=== PATIENT | female | born 1945 | race Caucasian/White ===

== ENCOUNTER 2021-01-02 14:13 | Emergency (ER) | payer MEDICARE, SELFPAY ==
--- NOTE | ~2021-01-02 | XR_ITS ---
XR abdomen/kub 1V 01/02/2021 14:48 Indication: Lower abdominal pain Procedure: KUB Comparison: No prior studies for comparison. Findings: There is moderate gas in the colon. No significant small bowel dilation. No abnormal calcif ications. No acute osseous abnormality. Impression: 1: Nonspecific bowel gas pattern. No definite obstruction. Reviewed, dictated and finalized at location A. [employer] Impression: 1: Nonspecific bowel gas pattern. No definite obstruction.
[2021-01-02 14:34] VITALS: BP 145/93; PULSE 76; RESP 20; TEMP 36.9; O2SAT 96
--- NOTE | 2021-01-02 14:47 | ED.GENADULT ---
HPI - General Adult General Chief complaint: Abdominal Pain Stated complaint: indigestion Time Seen by Provider: 01/02/21 14:35 Source: patient Mode of arrival: ambulatory Limitations: no limitations History of Present Illness HPI narrative: 75 year old female who presents to [facility] with complaints of lower abdominal discomfort with bloating and feelings of being full of gas. Patient states that she was on an antibiotic starting on the 09 of December for a sinus infection which upset her stomach and so she cut it back to one tab daily till she completed the prescription on Monday. Patient states that she has had a lower abdominal stomach ache since Monday and she took Miralax and some Milk of Magnesia and had a small diarrhea stool but has so much gas she is miserable. Patient has rounded abdomen with no rigidity noted, bowel sounds present in all quadrants. Patient denies any further diarrhea stools, no nausea or vomiting, states some belching. Patient denies any history of IBS, diverticulitis or colitis in the past. MD complaint: abdominal cramping Onset (ago): day(s) (3) Location: abdomen (lower and mid abdomen) Radiation: non-radiation Severity: moderate Severity scale (1-10): 7 Quality: other (cramping) Pain Consistency: intermittent Relieving factors: none Exacerbating factors: none Associated symptoms: loss of appetite Treatments prior to arrival: other (laxatives, yougurt wirh probiotics) Related Data Home Medications Medication Instructions Recorded Confirmed thyroid (pork) [[place] Thyroid] 120 mg DAILY 01/02/21 01/02/21 Allergies Allergy/AdvReac Type Severity Reaction Status Date / Time codeine Allergy Mild Verified 02/15/12 13:33 levothyroxine sodium Allergy Mild neck Verified 03/13/17 14:09 swelling Penicillins Allergy Mild Verified 02/15/12 13:34 Review of Systems Review of Systems: Narrative: CONSTITUTIONAL: Denies fever, chills, or sweats. EYES: Denies visual changes, redness, or discharge. ENT: Denies rhinorrhea, congestion, sore throat, or otalgia. CARDIOVASCULAR: Denies chest pain, palpitations, or edema. RESPIRATORY: Denies cough or dyspnea. GASTROINTESTINAL: Positive for lower and mid abdomen cramping, nausea, distention with feelings of gas, with one episode of diarrhea GENITOURINARY: Denies dysuria or hematuria. SKIN: Denies rash or itching. MUSCULOSKELETAL: Denies back pain, joint pain, or myalgia. NEUROLOGIC: Denies headache, numbness, or weakness. PSYCHIATRIC: Denies anxiety or depression. All systems reviewed & are unremarkable except as noted in HPI and below PMFSH Past Medical History Medical History (Updated 01/02/21 @ 15:53 by Stephany Chow NP) Bilateral swelling of feet and ankles Hypothyroidism Surgical History Surgical History (Updated 01/02/21 @ 14:54 by Stephany Chow NP) H/O thyroidectomy History of total left knee replacement History of total right knee replacement Family History Family History Father Family history of premature coronary heart disease Family history of heart disease in male family member before age 55 Mother Family history of osteoporosis Family history of malignant neoplasm Family history of congestive heart failure Other Cerebrovascular accident Social History Social History Smoking status: Never smoker Second hand tobacco smoke exposure: No Alcohol intake: never Gender identity (if verbalized by the patient): Female Comments At time of signature, agree with nursing past medical, surgical, social and family history. There is no relevant family history pertinent to the presenting complaint Exam Narrative: Exam Narrative: GENERAL: Well-appearing, well-nourished, and in no acute distress. HEAD: Normocephalic, atraumatic. EYES: PERRLA and EOMI. ENT: Nares clear, no rhinorrhea or epistaxis. Mucous
== END 2021-01-02 15:19 | disposition home or self-care (01) ==
PROVIDERS: Emergency Provider Registered Nurse
DX: R14.3 Flatulence (principal); R14.0 Abdominal distension (gaseous); R10.30 Lower abdominal pain, unspecified; E03.9 Hypothyroidism, unspecified; Z96.653 Presence of artificial knee joint, bilateral
CPT/HCPCS: 74018; 99213; G0463

== ENCOUNTER → 2021-05-06 15:13 | Outpatient (CLI) | payer MEDICARE, SELFPAY ==
--- NOTE | ~2021-05-06 | XR_ITS ---
EXAMINATION: XR knee RT min 4V DATE: 05/06/2021 15:43 INDICATION: Right knee pain. TECHNIQUE: 4 views of right knee were obtained. COMPARISON: None. FINDINGS: There is a total right knee arthroplasty with patellar resurfacing in near-anatomic alignme nt. No periprosthetic lucency to suggest loosening or infection. No fracture. No knee joint effusion. IMPRESSION: 1. Total right knee arthroplasty in near-anatomic alignment. Reviewed, dictated and finalized at location A.
--- NOTE | ~2021-05-06 | XR_ITS ---
EXAMINATION: XR hip RT min 2V DATE: 05/06/2021 15:43 INDICATION: Right hip pain. TECHNIQUE: 2 views of right hip were obtained. COMPARISON: None. FINDINGS: Bone alignment is normal. No fracture. There is mild right hip osteoarthritis. IMPRESSION: 1. Mild right hip osteoarthritis. Reviewed, dictated and finalized at location A.
--- NOTE | ~2021-05-06 | XR_ITS ---
EXAMINATION: XR knee LT min 4V DATE: 05/06/2021 15:43 INDICATION: Left knee pain. TECHNIQUE: 4 views of left knee were obtained. COMPARISON: None. FINDINGS: There is a total left knee arthroplasty with patellar resurfacing. Tibia demonstrates 5 deg tenisha valgus angulation with respect to tibial component. No periprosthetic lucency to suggest looseni ng or infection. No fracture. No knee joint effusion. IMPRESSION: 1. Total left knee arthroplasty in near-anatomic alignment. Reviewed, dictated and finalized at location A.
== END ==
PROVIDERS: PCP Family Medicine; Visit Provider Physician Assistant
DX: M16.11 Unilateral primary osteoarthritis, right hip (principal); Z96.651 Presence of right artificial knee joint; M25.562 Pain in left knee
CPT/HCPCS: 73502; 73564

== ENCOUNTER 2021-05-29 01:18 | Observation (INO) | payer MEDICARE, SELFPAY ==
[2021-05-29] VITALS (11 sets, daily range): BP systolic 145–199; BP diastolic 68–117; PULSE 74–91; RESP 15–20; TEMP 35.9–36.6; O2SAT 84–98; BMI 42.9
--- NOTE | ~2021-05-29 | CT_ITS ---
EXAMINATION: CT abdomen pelvis w con INDICATION: Abdominal pain TECHNIQUE: Computed tomographic images of the abdomen and pelvis were obtained after the administrati on of 100 cc of Omnipaque 350 intravenous contrast. The dose-length product (DLP) was 1368.95 mGy-cm. Automated exposure control and iterative reconstruction technique were employed. COMPARISON: 04/18/2019, ultrasound FINDINGS: Minimal dependent atelectasis is present in the lung bases. The heart size is normal. There is a 1.4 x 1.0 cm mass in the left breast. The liver is diffusely low in attenuation when compared w ith the spleen, consistent with hepatic steatosis. The spleen, pancreas, gallbladder, and adrenal gla nds are normal. Cysts of the kidneys measure up to 2.1 cm on the left. No pathologically enlarged abd ominal or pelvic lymph nodes are identified. There is a large midline ventral hernia of the lower abd ominal wall containing small bowel. The small bowel loops proximal to the hernia are fluid-filled. Th e small bowel distal to the hernia is decompressed. No free intraperitoneal gas is identified. The ap pendix is normal. There is severe lumbar spondylosis. IMPRESSION: 1. Large ventral hernia containing small bowel with decompression of small bowel distal to the hernia which could reflect early obstruction. 2. 1.4 cm left breast mass. Recommend follow-up with diagnostic mammogram and possible ultrasound as an outpatient. 3. Diffuse hepatic steatosis. Reviewed, dictated and finalized at location A. IMPRESSION: 1. Large ventral hernia containing small bowel with decompression of small fabiola l distal to the hernia which could reflect early obstruction. 2. 1.4 cm left breast mass. Recommend follow-up with diagnostic mammogram and p ossible ultrasound as an outpatient. 3. Diffuse hepatic steatosis.
--- NOTE | ~2021-05-29 | XR_ITS ---
EXAMINATION: XR abdomen obstructive series DATE: 05/31/2021 09:38 INDICATION: Large ventral hernia with partial small bowel obstruction TECHNIQUE: Upright and supine, and crosstable lateral views of the abdomen were obtained. COMPARISON: 05/30/2021 FINDINGS: Again seen is a large persistent ventral hernia of the lower abdominal wall. There are pers istently dilated loops of small bowel in the lower abdomen which is slightly decreased in number. Gas and stool are present in the colon. No free intraperitoneal gas is identified. IMPRESSION: 1. Persistent large ventral hernia of the lower abdominal wall with slightly decreased number of dila catie small bowel loops in the pelvis. Reviewed, dictated and finalized at location A. IMPRESSION: 1. Persistent large ventral hernia of the lower abdominal wall with slightly de creased number of dilated small bowel loops in the pelvis.
--- NOTE | ~2021-05-29 | XR_ITS ---
EXAMINATION: XR abdomen obstructive series EXAM DATE: 05/29/2021 12:18 INDICATION: Check bowel gas pattern after reduction of umbilical hernia. TECHNIQUE: Frontal upright projection of the upper abdomen, frontal projection of the lower abdomen f or interpretation. Correlation is made to CT abdomen earlier same date. FINDINGS: There are several loops of moderately distended air-filled small bowel overlying the pelvis , could be within the large hernia described on CT, although history states this has been clinically reduced. The small bowel proximal to this does not appear significantly distended or least does not h ave gas within it also not well visualized. No evidence of free intraperitoneal gas. There is no orga nomegaly. No suspicious soft tissue calcifications identified. IMPRESSION: Persistent moderately distended mid small bowel, central low location could still be within hernia de scribed on CT. Lateral abdomen cross table projection could determine anterior versus intra-abdominal location. Reviewed, dictated and finalized at location A. IMPRESSION: Persistent moderately distended mid small bowel, central low location could sti ll be within hernia described on CT. Lateral abdomen cross table projection cou ld determine anterior versus intra-abdominal location.
--- NOTE | ~2021-05-29 | XR_ITS ---
EXAMINATION: XR abdomen obstructive series DATE: 05/30/2021 10:50 INDICATION: Small bowel obstruction TECHNIQUE: Upright, supine, and crosstable lateral views of the abdomen were obtained. COMPARISON: CT from yesterday FINDINGS: Crosstable lateral view demonstrates a large, persistent ventral hernia of the lower abdomi nal wall. There are persistently distended loops of small bowel in the pelvis. No free intraperitonea l gas is identified. IMPRESSION: 1. Persistent large ventral hernia of the lower abdominal wall containing small bowel with dilated lo ops of small bowel in the pelvis. Reviewed, dictated and finalized at location A. IMPRESSION: 1. Persistent large ventral hernia of the lower abdominal wall containing small bowel with dilated loops of small bowel in the pelvis.
[2021-05-29 01:39] LABS: Basophils Percent Auto 0.4 % (0.2-1.2); Eosinophils Absolute Auto 0.2 K/mm3 (0-0.3); Eosinophils Percent Auto 1.6 % (0-4.4); Hematocrit 43.5 % (37.0-47.0); Hemoglobin 14.7 g/dL (12.0-15.0); Immature Granulocyte Absolute 0.03 K/mm3 (0.00-0.031); Immature Granulocyte Percent A 0.3 % (0-0.5); Lymphocytes Absolute Auto 1.03 K/mm3 (0.9-3.2); Lymphocytes Percent Auto 10.1 % (18.3-44.2); Mean Corpuscular HGB Conc 33.8 g/dl (32-36); Mean Corpuscular Hemoglobin 31.1 pg (26-34); Mean Platelet Volume 10.7 fl (7.4-10.4); Monocytes Absolute Auto 0.5 K/mm3 (0.1-0.6); Monocytes Percent Auto 5.3 % (2.6-8.5); Neutrophils Absolute Auto 8.4 K/mm3 (1.3-6.7); Neutrophils Percent Auto 82.3 % (45.5-73.1); Platelet Count Result 247 k/mm3 (150-375); Red Blood Count 4.73 M/mm3 (4.2-5.4); Red Cell Distribution Width 12.6 % (11.5-14.5); White Blood Count 10.2 K/mm3 (4.5-10.0)
[2021-05-29 01:53] LABS: Albumin Level 4.3 g/dL (3.5-5.1); Alkaline Phosphatase 60 U/L (38-126); Anion Gap 13 mmol/L (8-16); Aspartate Amino Transferase 39 U/L (14-36); Bilirubin,Total 0.6 mg/dL (0.2-1.3); Blood Urea Nitrogen 16 mg/dL (7-17); Calcium 10.1 mg/dL (8.4-10.2); Carbon Dioxide 20 mmol/L (22-30); Chloride 105 mmol/L (98-107); Estimated Glomerular Filt Rate 48; Glucose 157 mg/dL (65-105); Lipase 115 U/L (23-300); Potassium 4.5 mmol/L (3.4-5.0); Sodium 138 mmol/L (137-145)
[2021-05-29] MEDS: ONDANSETRON INJ 4 MG/2 ML VIAL IV PUSH ×2 (02:05→04:30)
[2021-05-29 02:08] LABS: Alanine Aminotransferase 41 U/L (4-35)
[2021-05-29 02:45] LABS: Add Urine Microscopic? NO; Appearance Urine Clear (Clear); Bilirubin Urine Negative (Negative); Blood Urine Negative (Negative); Color Urine Yellow (Yellow); Glucose Urine UA Negative (Negative); Ketones Urine Negative (Negative); Leukocyte Esterase Ur Negative LEU/UL (Negative); Nitrate Urine Negative (Negative); Protein Urine Negative (Negative); Specific Grav Ur 1.024 (1.001-1.035); Urobilinogen Urine Negative mg/dL (<2.0)
[2021-05-29 02:52] LABS: Bacteria Urine Trace /hpf; Mucus Urine Rare /lpf; Squamous Epithelial Cell Urine Rare /hpf (Few); WBC Urine 0-3 /hpf
--- NOTE | 2021-05-29 02:53 | ED.ABDPAIN ---
HPI - Abdominal Pain General Chief Complaint: Abdominal Pain Stated Complaint: stomach ache Time Seen by Provider: 05/29/21 01:29 History of Present Illness HPI narrative: Patient is a 75-year-old female who presents ER with abdominal pain. Sudden onset this evening. Feels like she is bloated. Pain is across her upper abdomen and she is belching. Has had a bowel movement this evening. No fevers or chills or sweats. Patient has a lower abdominal hernia that is tender but she reports this is unchanged in size and tenderness and is a chronic issue. She does not feel represents an incarcerated hernia. Denies urinary frequency or urgency. Patient reports burning similar to acid reflux and has tried Mylanta without relief. Related Data Home Medications Medication Instructions Recorded Confirmed thyroid (pork) [[place] Thyroid] 120 mg PO DAILY 05/29/21 05/29/21 Allergies Allergy/AdvReac Type Severity Reaction Status Date / Time codeine Allergy Mild Unknown Verified 05/29/21 05:55 levothyroxine sodium Allergy Mild neck Verified 05/29/21 05:55 swelling Penicillins Allergy Mild Unknown Verified 05/29/21 05:55 Review of Systems Review of Systems: All systems reviewed & are unremarkable except as noted in HPI and below Constitutional: Constitutional: Denies chills, Denies fever(s) and Denies weakness ENT: Denies nasal congestion and Denies sore throat Cardiovascular: Cardiovascular: Denies chest pain, Denies rapid heart rate and Denies radiating jaw, neck or arm pain Gastrointestinal: Gastrointestinal: Reports abdominal pain, Reports bloating, Denies constipation, Reports heartburn, Denies diarrhea, Reports nausea and Denies vomiting Genitourinary: Genitourinary: Denies dysuria and Denies flank pain [facility] Past Medical History Medical History Bilateral swelling of feet and ankles Hypothyroidism Surgical History Surgical History H/O thyroidectomy History of total left knee replacement History of total right knee replacement Family History Family History Father Family history of premature coronary heart disease Family history of heart disease in male family member before age 55 Mother Family history of osteoporosis Family history of malignant neoplasm Family history of congestive heart failure History of hysterectomy Grandparent Liver cancer Sibling ALS (amyotrophic lateral sclerosis) Other Cerebrovascular accident Social History Social History Smoking status: Never smoker Second hand tobacco smoke exposure: No Alcohol intake: never Substance use: never Substance use type: does not use Gender identity (if verbalized by the patient): Female Spiritual care concerns: No Exam Narrative: Exam Narrative: GENERAL: Chronically ill-appearing, morbidly obese, and in no acute distress. HEAD: Normocephalic, atraumatic. ENT: Mucous membranes moist. CHEST: Clear to auscultation. No respiratory distress. HEART: Regular rate and rhythm. Normal peripheral pulses. ABDOMEN: Soft, mild diffuse tenderness with ventral hernia deformity in the lower abdomen that is very tender to palpation. EXTREMITIES: Normal range of motion. 2+ edema. SKIN: Warm, dry, no rash. NEURO: Alert and oriented x3. PSYCH: Normal mood and affect. Course Course Emergency Course: Unable to reduce hernia. Surgery will accept patient for admission and would like medical consult. Unsuccessful NG placement down here and the floor will try. Vital Signs Vital signs: Vital Signs Temperature 97.3 F L 05/29/21 01:21 Pulse Rate 89 05/29/21 01:21 Respiratory Rate 20 05/29/21 01:21 Blood Pressure 199/117 H 05/29/21 01:21 Pulse Oximetry 96 05/29/21 01:21 Temperature 97.3 F L
[2021-05-29 03:03] LABS: Troponin I < 0.012 ng/mL (0.000-0.034)
[2021-05-29] MEDS: HYDROmorphone HCL INJ (*CRX) 1 MG/ML SYR IV PUSH (03:44)
--- NOTE | 2021-05-29 04:36 | PC.NURSE ---
NG attempted in both nares using 16 [place] sump and met resistance in both nares. notified.
--- NOTE | 2021-05-29 05:53 | ADMGEN ---
This patient, Yara Aguirre, was admitted to 2 Medical Room [facility]. Patient/family oriented to hospital policies and general routines including ID bracelet, bed and alarms, visiting hours, pain management, procedures, bathroom and other care routines, personal items, smoking policy, room service/diet, and visiting hours. Information on how to activate the Rapid Response Team has been discussed. Patient/Family are encouraged to report perceived risks to care and to ask questions if they do not understand what they are told or what they should do.
[2021-05-29] MEDS: SODIUM CHLORIDE 0.9% IV 1,000 ML 125 ML IV CONT ×2 (06:11→14:34)
--- NOTE | 2021-05-29 09:09 | P.CONIM_ITS ---
Assessment and Plan Assessment and plan (1) Incarcerated hernia: Onset Date: ~05/28/21 Code(s): K46.0 - Unspecified abdominal hernia with obstruction, without gangrene Status: Acute Assessment and Plan: * CT scan of the abdomen pelvis reveals a umbilical hernia with incarcerated small bowel which obstruction with dilated fluid and gas containing loops of small bowel proximal to the hernia. * General surgery on case and to manage * Abdominal binder * NPO diet * Trend labs * Labs in the am * Morphine 4mg IV Q2hr PRN for pain * Reglan 5mg IV Q6hr PRN for antiemetic (2) Borderline type 2 diabetes mellitus: Onset Date: Unknown Code(s): R73.03 - Prediabetes Status: Acute Assessment and Plan: * patient stated that she was checked for diabetes at that her primary care office which they told her she was told she is prediabetic * Accu-Cheks ACHS * A1c in the morning * Labs in morning * trend glucose * current glucose 110 * add medications if needed. (3) Morbid obesity with BMI of 40.0-44.9, adult: Onset Date: Unknown Code(s): E66.01 - Morbid (severe) obesity due to excess calories; Z68.41 - Body mass index [BMI]40.0-44.9, adult Status: Acute Assessment and Plan: * Apparently patient has been overweight her entire life. * Will encourage her to follow low-fat diet upon discharge. (4) Post-surgical hypothyroidism: Onset Date: Unknown Code(s): E89.0 - Postprocedural hypothyroidism Status: Acute Assessment and Plan: * Patient on [place] thyroid 120 mg p.o. daily * Apparently had total thyroidectomy in 2007 * TSH is 11.87, T3 is 105 free T4 is 1 As of 05/11/2021 * will hold home medications while patient is NPO. (5) Primary hypertension: Code(s): I10 - Essential (primary) hypertension Status: Acute Assessment and Plan: * Patient's blood pressure is 140-190/80-117 * will add p.r.n. hydralazine 10 IV q.8 p.r.n. for a systolic blood pressure greater than 160 * trend blood pressures * adjust medications as needed (6) PVD (peripheral vascular disease): Code(s): I73.9 - Peripheral vascular disease, unspecified Status: Acute Assessment and Plan: * patient has a history of PVD * 3 to 4+ pitting edema bilateral lower extremities. * will order sequentials * patient stated that she uses sequentials at home * will monitor edema * Consider aspirin and statin upon discharge. (7) Hyperlipemia: Code(s): E78.5 - Hyperlipidemia, unspecified Status: Acute Assessment and Plan: * Cholesterol is 180, LDL is 108 HDL is 48 and triglycerides 127 per labs in 05/11/2021 * will educate patient about low-fat diet * will have patient follow-up with primary care about possible statin drug. HPI Data of Consult Consult date: 05/29/21 Requesting Physician: Fabiano Whalen MD Primary Care Provider: Amanda New MD Consult Narrative Narrative: Yara Aguirre is a 75 year old female With past medical history of PVD, umbilical rupture from , borderline diabetes, and anemia who presented to the ED with severe abdominal pain. Patient stated that she had colicky pain all night however she ate dinner which was lasagna and then later on that evening she was still hungry and went to [employer], and got a vanilla
--- NOTE | 2021-05-29 09:09 | PM.IMCN ---
Assessment and Plan Assessment and plan (1) Incarcerated hernia: Onset Date: ~05/28/21 Code(s): K46.0 - Unspecified abdominal hernia with obstruction, without gangrene Status: Acute Assessment and Plan: CT scan of the abdomen pelvis reveals a umbilical hernia with incarcerated small bowel which obstruction with dilated fluid and gas containing loops of small bowel proximal to the hernia. General surgery on case and to manage Abdominal binder NPO diet Trend labs Labs in the am Morphine 4mg IV Q2hr PRN for pain Reglan 5mg IV Q6hr PRN for antiemetic (2) Borderline type 2 diabetes mellitus: Onset Date: Unknown Code(s): R73.03 - Prediabetes Status: Acute Assessment and Plan: patient stated that she was checked for diabetes at that her primary care office which they told her she was told she is prediabetic Accu-Cheks ACHS A1c in the morning Labs in morning trend glucose current glucose 110 add medications if needed. (3) Morbid obesity with BMI of 40.0-44.9, adult: Onset Date: Unknown Code(s): E66.01 - Morbid (severe) obesity due to excess calories; Z68.41 - Body mass index [BMI]40.0-44.9, adult Status: Acute Assessment and Plan: Apparently patient has been overweight her entire life. Will encourage her to follow low-fat diet upon discharge. (4) Post-surgical hypothyroidism: Onset Date: Unknown Code(s): E89.0 - Postprocedural hypothyroidism Status: Acute Assessment and Plan: Patient on [place] thyroid 120 mg p.o. daily Apparently had total thyroidectomy in 2007 TSH is 11.87, T3 is 105 free T4 is 1 As of 05/11/2021 will hold home medications while patient is NPO. (5) Primary hypertension: Code(s): I10 - Essential (primary) hypertension Status: Acute Assessment and Plan: Patient's blood pressure is 140-190/80-117 will add p.r.n. hydralazine 10 IV q.8 p.r.n. for a systolic blood pressure greater than 160 trend blood pressures adjust medications as needed (6) PVD (peripheral vascular disease): Code(s): I73.9 - Peripheral vascular disease, unspecified Status: Acute Assessment and Plan: patient has a history of PVD 3 to 4+ pitting edema bilateral lower extremities. will order sequentials patient stated that she uses sequentials at home will monitor edema Consider aspirin and statin upon discharge. (7) Hyperlipemia: Code(s): E78.5 - Hyperlipidemia, unspecified Status: Acute Assessment and Plan: Cholesterol is 180, LDL is 108 HDL is 48 and triglycerides 127 per labs in 05/11/2021 will educate patient about low-fat diet will have patient follow-up with primary care about possible statin drug. HPI Data of Consult Consult date: 05/29/21 Requesting Physician: Fabiano Whalen MD Primary Care Provider: Amanda New MD Consult Narrative Narrative: Yara Aguirre is a 75 year old female With past medical history of PVD, umbilical rupture from , borderline diabetes, and anemia who presented to the ED with severe abdominal pain. Patient stated that she had colicky pain all night however she ate dinner which was lasagna and then later on that evening she was still hungry and went to [employer], and got a vanilla milk shake. She then proceeded to go to bed and was unable to rest comfortably so she got up and found her some Mylanta which did not give her any relief. She stated that she started experiencing burning indigestion bloated feeling generalized over her abdomen she also did take some Gas-X and did not get any relief from that as well. She decided come to the ED after the pain started to gradually get worse she also stated that she was having indigestion and was having episodes of belching along with nausea and dry heaves. Currently
--- NOTE | 2021-05-29 09:39 | PM.IMHP ---
H&P: HPI History of Present Illness Date/Time: 05/29/21 09:39 Patient is a 75-year-old White female who presented the the [place] ED with abdominal pain. She says it was a fairly sudden onset on the evening prior to presentation. She statews that it feels like she is bloated. The pain is across her upper abdomen and she is belching a lot and not passing flatus per rectum. She did have a bowel movement last evening prior to eat the Lasagna for supper. She denies fevers or chills or sweats. Patient has a lower abdominal brianne-umbilical hernia that is tender but she reports this is unchanged in size and tenderness and is a chronic issue. She states that ever since she was 5 years old until about 5 years ago she wore a abdominal binder belt. She does not feel this pain represents an incarcerated hernia. Denies urinary frequency or urgency. Patient reports burning similar to acid reflux and has tried Mylanta without relief. Patient is on very few medications at home but in trying to help the pain last night she did take some Mylanta and Gas-X without relief. She recently remembers a similar episode about a month ago which led to less burping and resolve spontaneously. She has never had previous abdominal surgery. Chief Complaint: Abdominal pain Review of Systems Constitutional: Constitutional: Reports as per HPI and Denies headache(s) Eyes: Eyes: Denies loss of vision and Denies eye pain ENT: Reports Normal hearing present, Denies change in voice, Denies dizziness and Denies headache(s) Cardiovascular: Cardiovascular: Denies chest pain and Denies dyspnea Respiratory: Respiratory: Denies dyspnea and Denies wheezing Gastrointestinal: Gastrointestinal: Reports abdominal pain ( mainly above the level the umbilicus across the mid abdomen) and Denies constipation ( typically has 1 bowel movement today and had 1 last evening) Comments: no previous history of colonoscopy. Musculoskeletal: Musculoskeletal: Denies back pain and Denies arthralgias Neurologic: Reports Normal hearing present, Denies dizziness, Denies headache(s), Denies loss of vision and Denies memory loss Comments: History of shingles 2013 on her right posterior neck. Psychiatric: Psychiatric: Denies memory loss and Denies panic attacks Endocrine: Endocrine: Reports no additional endocrine complaints Comments: Recently discovered full ache acid deficiency History of long-term hypothyroidism on medication ( stable). Hematologic/Lymphatic: Hematologic/Lymphatic: Reports no additional hematologic/lymphatic complaints Allergic/Immunologic: Allergic/Immunologic: Denies wheezing [facility] Past Medical History Medical History Anemia 2019 Bilateral swelling of feet and ankles Borderline type 2 diabetes mellitus Hiatal hernia Diagnosed in 2019 Hypothyroidism PVD (peripheral vascular disease) Spontaneous rupture of umbilical cord Surgical History Surgical History H/O thyroidectomy 2007 History of total left knee replacement 2010 History of total right knee replacement 2009 Family History Family History Father Family history of premature coronary heart disease Family history of heart disease in male family member before age 55 Mother Family history of osteoporosis Family history of malignant neoplasm Family history of congestive heart failure History of hysterectomy Grandparent Liver cancer Sibling ALS (amyotrophic lateral sclerosis) Other Cerebrovascular accident Social History Social History Smoking status: Never smoker Second hand tobacco smoke exposure: No Alcohol intake: never Substance use: never Substance use type: does not use Living arrangements: alone Additional living arrangements comments:
[2021-05-29 17:07] LABS: Glucose Point of Care 94 mg/dl (65-105)
[2021-05-29 21:15] LABS: Glucose Point of Care 104 mg/dl (65-105)
[2021-05-30] VITALS (7 sets, daily range): BP systolic 134–155; BP diastolic 55–73; PULSE 69–91; RESP 16–20; TEMP 36–36.6; O2SAT 94–97
[2021-05-30 01:17] LABS: Glucose Point of Care 116 mg/dl (65-105)
[2021-05-30 05:05] LABS: Basophils Percent Auto 0.4 % (0.2-1.2); Eosinophils Absolute Auto 0.3 K/mm3 (0-0.3); Eosinophils Percent Auto 4.4 % (0-4.4); Hematocrit 37.7 % (37.0-47.0); Hemoglobin 12.4 g/dL (12.0-15.0); Immature Granulocyte Absolute 0.01 K/mm3 (0.00-0.031); Immature Granulocyte Percent A 0.1 % (0-0.5); Lymphocytes Absolute Auto 1.77 K/mm3 (0.9-3.2); Lymphocytes Percent Auto 25.1 % (18.3-44.2); Mean Corpuscular HGB Conc 32.9 g/dl (32-36); Mean Corpuscular Hemoglobin 30.8 pg (26-34); Mean Corpuscular Volume 93.5 fl (80-100); Mean Platelet Volume 10.9 fl (7.4-10.4); Monocytes Absolute Auto 0.6 K/mm3 (0.1-0.6); Monocytes Percent Auto 7.9 % (2.6-8.5); Neutrophils Absolute Auto 4.4 K/mm3 (1.3-6.7); Neutrophils Percent Auto 62.1 % (45.5-73.1); Platelet Count Result 195 k/mm3 (150-375); Red Blood Count 4.03 M/mm3 (4.2-5.4); Red Cell Distribution Width 12.6 % (11.5-14.5); White Blood Count 7.1 K/mm3 (4.5-10.0)
[2021-05-30 05:21] LABS: Anion Gap 6 mmol/L (8-16); Blood Urea Nitrogen 11 mg/dL (7-17); Calcium 8.6 mg/dL (8.4-10.2); Carbon Dioxide 26 mmol/L (22-30); Chloride 109 mmol/L (98-107); Estimated CRCL calculation 49 ml/min; Estimated Glomerular Filt Rate 44; Glucose 102 mg/dL (65-105); Magnesium 1.9 mg/dL (1.6-2.3); Potassium 4.2 mmol/L (3.4-5.0); Sodium 141 mmol/L (137-145)
[2021-05-30 05:27] LABS: Hemoglobin A1C 5.6 % (<5.7)
[2021-05-30 06:13] LABS: Glucose Point of Care 123 mg/dl (65-105)
--- NOTE | 2021-05-30 07:02 | P.PNIM_ITS ---
Progress Note: A&P Assessment and Plan (1) Incarcerated hernia: Onset Date: ~05/28/21 Code(s): K46.0 - Unspecified abdominal hernia with obstruction, without gangrene Status: Acute Assessment and Plan: * CT scan of the abdomen pelvis reveals a umbilical hernia with incarcerated small bowel which obstruction with dilated fluid and gas containing loops of small bowel proximal to the hernia. * General surgery on case and to manage * Abdominal binder * Repeat ABD xray: Persistent moderately distended mid small bowel, central low location could still be within hernia described on CT. Lateral abdomen cross table projection could determine anterior versus intra-abdominal location. * Clear liquids now/Advance to Consistent Carb diet * Trend labs * Labs in the am * Morphine 4mg IV Q2hr PRN for pain * Zofran 4mg IV PRN, Reglan 5mg IV Q6hr PRN for antiemetic (2) Borderline type 2 diabetes mellitus: Onset Date: Unknown Code(s): R73.03 - Prediabetes Status: Acute Assessment and Plan: * patient stated that she was checked for diabetes at that her primary care office which they told her she was told she is prediabetic * Accu-Cheks ACHS * A1c 5.6 * Labs in morning * trend glucose * current glucose 102 * add medications if needed. (3) Morbid obesity with BMI of 40.0-44.9, adult: Onset Date: Unknown Code(s): E66.01 - Morbid (severe) obesity due to excess calories; Z68.41 - Body mass index [BMI]40.0-44.9, adult Status: Acute Assessment and Plan: * Apparently patient has been overweight her entire life. * Will encourage her to follow low-fat diet upon discharge. (4) Post-surgical hypothyroidism: Onset Date: Unknown Code(s): E89.0 - Postprocedural hypothyroidism Status: Acute Assessment and Plan: * Patient on [place] thyroid 120 mg p.o. daily * Apparently had total thyroidectomy in 2007 * TSH is 11.87, T3 is 105 free T4 is 1 As of 05/11/2021 * Will hold home medications while patient is NPO. (5) Primary hypertension: Code(s): I10 - Essential (primary) hypertension Status: Acute Assessment and Plan: * Patient's blood pressure is 140-190/80-117 * Today BP 134/55 * will add p.r.n. hydralazine 10 IV q.8 p.r.n. for a systolic blood pressure greater than 160 * trend blood pressures * adjust medications as needed (6) PVD (peripheral vascular disease): Code(s): I73.9 - Peripheral vascular disease, unspecified Status: Acute Assessment and Plan: * patient has a history of PVD * 3 to 4+ pitting edema bilateral lower extremities. * will order sequentials * patient stated that she uses sequentials at home * will monitor edema * Follow up with PCP for initiation of aspirin and statin upon discharge. (7) Hyperlipemia: Code(s): E78.5 - Hyperlipidemia, unspecified Status: Acute Assessment and Plan: * Cholesterol is 180, LDL is 108 HDL is 48 and triglycerides 127 per labs in 05/11/2021 * will educate patient about low-fat diet * will have patient follow-up with primary care about possible statin drug. Subjective Date/time seen: 05/30/21 10:22 Interval history: Yara Aguirre is a 75 year old female With past medical history of PVD, umbilical rupture from , borderline diabetes, and anemia who presented to the ED with s
--- NOTE | 2021-05-30 07:02 | PM.IMPN ---
Progress Note: A&P Assessment and Plan (1) Incarcerated hernia: Onset Date: ~05/28/21 Code(s): K46.0 - Unspecified abdominal hernia with obstruction, without gangrene Status: Acute Assessment and Plan: CT scan of the abdomen pelvis reveals a umbilical hernia with incarcerated small bowel which obstruction with dilated fluid and gas containing loops of small bowel proximal to the hernia. General surgery on case and to manage Abdominal binder Repeat ABD xray: Persistent moderately distended mid small bowel, central low location could still be within hernia described on CT. Lateral abdomen cross table projection could determine anterior versus intra-abdominal location. Clear liquids now/Advance to Consistent Carb diet Trend labs Labs in the am Morphine 4mg IV Q2hr PRN for pain Zofran 4mg IV PRN, Reglan 5mg IV Q6hr PRN for antiemetic (2) Borderline type 2 diabetes mellitus: Onset Date: Unknown Code(s): R73.03 - Prediabetes Status: Acute Assessment and Plan: patient stated that she was checked for diabetes at that her primary care office which they told her she was told she is prediabetic Accu-Cheks ACHS A1c 5.6 Labs in morning trend glucose current glucose 102 add medications if needed. (3) Morbid obesity with BMI of 40.0-44.9, adult: Onset Date: Unknown Code(s): E66.01 - Morbid (severe) obesity due to excess calories; Z68.41 - Body mass index [BMI]40.0-44.9, adult Status: Acute Assessment and Plan: Apparently patient has been overweight her entire life. Will encourage her to follow low-fat diet upon discharge. (4) Post-surgical hypothyroidism: Onset Date: Unknown Code(s): E89.0 - Postprocedural hypothyroidism Status: Acute Assessment and Plan: Patient on [place] thyroid 120 mg p.o. daily Apparently had total thyroidectomy in 2007 TSH is 11.87, T3 is 105 free T4 is 1 As of 05/11/2021 Will hold home medications while patient is NPO. (5) Primary hypertension: Code(s): I10 - Essential (primary) hypertension Status: Acute Assessment and Plan: Patient's blood pressure is 140-190/80-117 Today BP 134/55 will add p.r.n. hydralazine 10 IV q.8 p.r.n. for a systolic blood pressure greater than 160 trend blood pressures adjust medications as needed (6) PVD (peripheral vascular disease): Code(s): I73.9 - Peripheral vascular disease, unspecified Status: Acute Assessment and Plan: patient has a history of PVD 3 to 4+ pitting edema bilateral lower extremities. will order sequentials patient stated that she uses sequentials at home will monitor edema Follow up with PCP for initiation of aspirin and statin upon discharge. (7) Hyperlipemia: Code(s): E78.5 - Hyperlipidemia, unspecified Status: Acute Assessment and Plan: Cholesterol is 180, LDL is 108 HDL is 48 and triglycerides 127 per labs in 05/11/2021 will educate patient about low-fat diet will have patient follow-up with primary care about possible statin drug. Subjective Date/time seen: 05/30/21 10:22 Interval history: Yara Aguirre is a 75 year old female With past medical history of PVD, umbilical rupture from , borderline diabetes, and anemia who presented to the ED with severe abdominal pain. Today she is laying bed and stated that she has a headache. She also stated that To pass gas without the night and that her legs were really swollen. She stated that she needed her moods so the nurse to put sequentials on her to see if that helps. Currently her pain is okay she does have a little soreness in the epigastric region she denies chest pain, shortness of breath, sweats, fatigue, weakness, urinary dysfunction, numbness and tingling in fingers and toes. patient also stated that she has been able to t
[2021-05-30] MEDS: SODIUM CHLORIDE 0.9% IV 1,000 ML 75 ML IV CONT (11:20)
--- NOTE | 2021-05-30 11:20 | PC.NURSE ---
IV fluids administered over night but no bag was scanned. Normal Saline infusion finished and I completed the order o the JAN. Original administration time unknown.
[2021-05-30] MEDS: ACETAMINOPHEN/ASPIRIN/CAFFEINE 250-250-65 MG TABLET 1 TABLET PO (11:44)
[2021-05-30 12:21] LABS: Glucose Point of Care 98 mg/dl (65-105)
[2021-05-30] MEDS: BISACODYL 10 MG SUPPOSITORY RECTAL (13:11)
[2021-05-30] MEDS: MAGNESIUM HYDROXIDE SUSP 30 ML UDC PO (18:43)
--- NOTE | 2021-05-30 19:11 | PM.PNGS ---
Progress Note: A&P Assessment and Plan (1) Incarcerated hernia: Onset Date: ~05/28/21 Code(s): K46.0 - Unspecified abdominal hernia with obstruction, without gangrene Status: Acute Assessment and Plan: CT scan of the abdomen pelvis reveals a umbilical hernia with incarcerated small bowel which appears to be causing some element of obstruction with dilated fluid and gas containing loops of small bowel proximal to the hernia. On initial exam with the patient in slight Trendelenburg position I was able to carefully massage and reduce this hernia nearly completely. I believe she will not need surgical intervention if we can keep this reduced. Repeat ABX shows still some air filled ioops of SB on both the 05/29 and 05/30 films, but pt is clinically improved. Will repeat abdominal film in AM on 05/31 and see if there are signs of improvement by Radiologic technique. karen and she did pass a little bit of gas in the interim period Plan for now then will be to check an x-ray in AM tomorrow after both a Fleets enema tonight and a dose of PO MOM. . We have encouraged the patient to get up and move her to try to help resolve the partial small-bowel obstruction. Will keep the abdominal binder in place over the hernia and recheck it tomorrow. Repeat labs in AM too. (2) Borderline type 2 diabetes mellitus: Onset Date: Unknown Code(s): R73.03 - Prediabetes Status: Acute Assessment and Plan: Patient on no home medication for this. Hospitalist consult to evaluate. (3) Morbid obesity with BMI of 40.0-44.9, adult: Onset Date: Unknown Code(s): E66.01 - Morbid (severe) obesity due to excess calories; Z68.41 - Body mass index [BMI]40.0-44.9, adult Status: Acute Assessment and Plan: Apparently patient has been overweight her entire life. Will encourage her to follow low-fat diet upon discharge. (4) Post-surgical hypothyroidism: Onset Date: Unknown Code(s): E89.0 - Postprocedural hypothyroidism Status: Acute Assessment and Plan: Patient on Thyroid supplement. Apparently had total thyroidectomy long ago. (5) History of total bilateral knee replacement (TKR): Onset Date: Unknown Code(s): Z96.653 - Presence of artificial knee joint, bilateral Status: Acute Assessment and Plan: No current problems with this. This may explain to some degree patient has some swelling in her lower extremities. Subjective Subjective Date/Time Seen: 05/30/21 09:11 Pt seen early this AM. The large umbilical hernia was again nearly copletely reduced. I also began teaching the pt how to massage this to reduce it on her own. She has not yet had a BM and this AM ABX still shows some dilated loops of SB. Pt denies abd. pain except at times as we reduced the hernia. She is tolerating an increasing diet. Review of Systems Constitutional: Constitutional: Reports as per HPI and Denies headache(s) Eyes: Eyes: Denies loss of vision and Denies eye pain ENT: Reports Normal hearing present, Denies change in voice, Denies dizziness and Denies headache(s) Cardiovascular: Cardiovascular: Denies chest pain and Denies dyspnea Respiratory: Respiratory: Denies dyspnea and Denies wheezing Gastrointestinal: Gastrointestinal: Reports abdominal pain ( mainly above the level the umbilicus across the mid abdomen) and Denies constipation ( typically has 1 bowel movement today and had one 2 evenings ago.) Comments: +flatus, but no BM since coming to the hospital. Musculoskeletal: Musculoskeletal: Denies back pain and Denies arthralgias Neurologic: Reports Normal hearing present, Denies dizziness, Denies headache(s), Denies loss of vision and Denies memory loss Psychiatric: Psychiatric: Denies memory loss and Denies panic attacks Endocrine: Endocrine: Reports no additional endocrine complaints Hematologic/Lymphatic: Hematologic/Lymphatic: Reports no additio
[2021-05-31] VITALS: BP 166/67; PULSE 93; RESP 20; TEMP 36.4; O2SAT 95
[2021-05-31 04:00] VITALS: BP 140/56; PULSE 88; RESP 20; TEMP 36.2; O2SAT 96
[2021-05-31 05:02] VITALS: BP 140/56; PULSE 88; RESP 20; TEMP 36.2; O2SAT 96
[2021-05-31 05:33] LABS: Basophils Percent Auto 0.4 % (0.2-1.2); Eosinophils Absolute Auto 0.3 K/mm3 (0-0.3); Eosinophils Percent Auto 4.2 % (0-4.4); Hematocrit 38.3 % (37.0-47.0); Hemoglobin 12.6 g/dL (12.0-15.0); Immature Granulocyte Absolute 0.01 K/mm3 (0.00-0.031); Immature Granulocyte Percent A 0.1 % (0-0.5); Lymphocytes Absolute Auto 1.18 K/mm3 (0.9-3.2); Lymphocytes Percent Auto 17.1 % (18.3-44.2); Mean Corpuscular HGB Conc 32.9 g/dl (32-36); Mean Corpuscular Hemoglobin 30.4 pg (26-34); Mean Corpuscular Volume 92.5 fl (80-100); Mean Platelet Volume 10.6 fl (7.4-10.4); Monocytes Absolute Auto 0.6 K/mm3 (0.1-0.6); Monocytes Percent Auto 9.1 % (2.6-8.5); Neutrophils Absolute Auto 4.8 K/mm3 (1.3-6.7); Neutrophils Percent Auto 69.1 % (45.5-73.1); Platelet Count Result 208 k/mm3 (150-375); Red Blood Count 4.14 M/mm3 (4.2-5.4); Red Cell Distribution Width 12.4 % (11.5-14.5); White Blood Count 6.9 K/mm3 (4.5-10.0)
[2021-05-31 05:43] LABS: Lactic Acid Reflex 0.9 mmol/L (0.7-2.1)
[2021-05-31 05:45] LABS: Alanine Aminotransferase 34 U/L (4-35); Albumin Level 3.4 g/dL (3.5-5.1); Alkaline Phosphatase 47 U/L (38-126); Anion Gap 7 mmol/L (8-16); Aspartate Amino Transferase 35 U/L (14-36); Bilirubin,Total 0.4 mg/dL (0.2-1.3); Blood Urea Nitrogen 15 mg/dL (7-17); Calcium 8.8 mg/dL (8.4-10.2); Carbon Dioxide 27 mmol/L (22-30); Chloride 105 mmol/L (98-107); Estimated CRCL calculation 49 ml/min; Estimated Glomerular Filt Rate 44; Glucose 108 mg/dL (65-105); Potassium 3.9 mmol/L (3.4-5.0); Sodium 139 mmol/L (137-145)
--- NOTE | 2021-05-31 06:55 | P.PNIM_ITS ---
Progress Note: A&P Assessment and Plan (1) Incarcerated hernia: Onset Date: ~05/28/21 Code(s): K46.0 - Unspecified abdominal hernia with obstruction, without gangrene Status: Acute Assessment and Plan: * CT scan of the abdomen pelvis reveals a umbilical hernia with incarcerated small bowel which obstruction with dilated fluid and gas containing loops of small bowel proximal to the hernia. * General surgery on case and to manage * Abdominal binder * Repeat ABD xray: 05/29/21 Persistent moderately distended mid small bowel, central low location could still be within hernia described on CT. Lateral abdomen cross table projection could determine anterior versus intra-abdominal location. 05/30/21:Persistent large ventral hernia of the lower abdominal wall containing small bowel with dilated loops of small bowel in the pelvis. * Clear liquids now/Advance to Consistent Carb, low fiber, soft diet * Trend labs * Labs in the am * Morphine 4mg IV Q2hr PRN for pain * Zofran 4mg IV PRN, Reglan 5mg IV Q6hr PRN for antiemetic (2) Borderline type 2 diabetes mellitus: Onset Date: Unknown Code(s): R73.03 - Prediabetes Status: Acute Assessment and Plan: * patient stated that she was checked for diabetes at that her primary care office which they told her she was told she is prediabetic * Accu-Cheks ACHS-D/C'd will trend from daily labs * A1c 5.6 * Labs in morning * trend glucose * current glucose 108 * add medications if needed. (3) Morbid obesity with BMI of 40.0-44.9, adult: Onset Date: Unknown Code(s): E66.01 - Morbid (severe) obesity due to excess calories; Z68.41 - Body mass index [BMI]40.0-44.9, adult Status: Acute Assessment and Plan: * Apparently patient has been overweight her entire life. * Will encourage her to follow low-fat diet upon discharge. (4) Post-surgical hypothyroidism: Onset Date: Unknown Code(s): E89.0 - Postprocedural hypothyroidism Status: Acute Assessment and Plan: * Patient on [place] thyroid 120 mg p.o. daily * Apparently had total thyroidectomy in 2007 * TSH is 11.87, T3 is 105 free T4 is 1 As of 05/11/2021 * Will hold home medications while patient is NPO. (5) Primary hypertension: Code(s): I10 - Essential (primary) hypertension Status: Acute Assessment and Plan: * Patient's blood pressure is 140-190/80-117 * Today BP 140/56 * will add p.r.n. hydralazine 10 IV q.8 p.r.n. for a systolic blood pressure greater than 160 * trend blood pressures * adjust medications as needed * Recommend patient follow up with PCP about better control (6) PVD (peripheral vascular disease): Code(s): I73.9 - Peripheral vascular disease, unspecified Status: Acute Assessment and Plan: * patient has a history of PVD * 3 to 4+ pitting edema bilateral lower extremities. * will order sequentials * patient stated that she uses sequentials at home * will monitor edema * Follow up with PCP for initiation of aspirin and statin upon discharge. (7) Hyperlipemia: Code(s): E78.5 - Hyperlipidemia, unspecified Status: Acute Assessment and Plan: * Cholesterol is 180, LDL is 108 HDL is 48 and triglycerides 127 per labs in 05/11/2021 * will educate patient about low-fat diet * will have patient follow-up with primary care about possible statin and aspirin
--- NOTE | 2021-05-31 06:55 | PM.IMPN ---
Progress Note: A&P Assessment and Plan (1) Incarcerated hernia: Onset Date: ~05/28/21 Code(s): K46.0 - Unspecified abdominal hernia with obstruction, without gangrene Status: Acute Assessment and Plan: CT scan of the abdomen pelvis reveals a umbilical hernia with incarcerated small bowel which obstruction with dilated fluid and gas containing loops of small bowel proximal to the hernia. General surgery on case and to manage Abdominal binder Repeat ABD xray: 05/29/21 Persistent moderately distended mid small bowel, central low location could still be within hernia described on CT. Lateral abdomen cross table projection could determine anterior versus intra-abdominal location. 05/30/21:Persistent large ventral hernia of the lower abdominal wall containing small bowel with dilated loops of small bowel in the pelvis. Clear liquids now/Advance to Consistent Carb, low fiber, soft diet Trend labs Labs in the am Morphine 4mg IV Q2hr PRN for pain Zofran 4mg IV PRN, Reglan 5mg IV Q6hr PRN for antiemetic (2) Borderline type 2 diabetes mellitus: Onset Date: Unknown Code(s): R73.03 - Prediabetes Status: Acute Assessment and Plan: patient stated that she was checked for diabetes at that her primary care office which they told her she was told she is prediabetic Accu-Cheks ACHS-D/C'd will trend from daily labs A1c 5.6 Labs in morning trend glucose current glucose 108 add medications if needed. (3) Morbid obesity with BMI of 40.0-44.9, adult: Onset Date: Unknown Code(s): E66.01 - Morbid (severe) obesity due to excess calories; Z68.41 - Body mass index [BMI]40.0-44.9, adult Status: Acute Assessment and Plan: Apparently patient has been overweight her entire life. Will encourage her to follow low-fat diet upon discharge. (4) Post-surgical hypothyroidism: Onset Date: Unknown Code(s): E89.0 - Postprocedural hypothyroidism Status: Acute Assessment and Plan: Patient on [place] thyroid 120 mg p.o. daily Apparently had total thyroidectomy in 2007 TSH is 11.87, T3 is 105 free T4 is 1 As of 05/11/2021 Will hold home medications while patient is NPO. (5) Primary hypertension: Code(s): I10 - Essential (primary) hypertension Status: Acute Assessment and Plan: Patient's blood pressure is 140-190/80-117 Today BP 140/56 will add p.r.n. hydralazine 10 IV q.8 p.r.n. for a systolic blood pressure greater than 160 trend blood pressures adjust medications as needed Recommend patient follow up with PCP about better control (6) PVD (peripheral vascular disease): Code(s): I73.9 - Peripheral vascular disease, unspecified Status: Acute Assessment and Plan: patient has a history of PVD 3 to 4+ pitting edema bilateral lower extremities. will order sequentials patient stated that she uses sequentials at home will monitor edema Follow up with PCP for initiation of aspirin and statin upon discharge. (7) Hyperlipemia: Code(s): E78.5 - Hyperlipidemia, unspecified Status: Acute Assessment and Plan: Cholesterol is 180, LDL is 108 HDL is 48 and triglycerides 127 per labs in 05/11/2021 will educate patient about low-fat diet will have patient follow-up with primary care about possible statin and aspirin Subjective Date/time seen: 05/31/21 06:55 Interval history: Yara Aguirre is a 75 year old female With past medical history of PVD, umbilical rupture from , borderline diabetes, and anemia who presented to the ED with severe abdominal pain. She is doing good today still no bowel movement patient stated that she got an enema plus Maalox yesterday which did not produce any BM however she has is having gas. I did talk to the patient about going to the primary care provider about her A1c and h
[2021-05-31 10:00] VITALS: BP 164/56; PULSE 78; RESP 16; TEMP 35.9; O2SAT 92
[2021-05-31] MEDS: MAGNESIUM HYDROXIDE SUSP 30 ML UDC PO (11:02)
[2021-05-31 14:00] VITALS: BP 175/88; PULSE 85; RESP 16; TEMP 35.9; O2SAT 96
--- NOTE | 2021-05-31 14:23 | PM.DS ---
DS: Admitting Diagnosis Admitting Diagnosis Admitting Diagnosis: Incarcerated umbilical hernia causing pSBO DS: Discharge Diagnosis Discharge Diagnosis (1) Incarcerated hernia: Onset Date: ~05/28/21 Code(s): K46.0 - Unspecified abdominal hernia with obstruction, without gangrene Status: Acute Assessment and Plan: Thisi was the main reason for pt admission. The hernia was found to be reducible and pts SBO resolved. (2) Primary hypertension: Onset Date: ~05/28/21 Code(s): I10 - Essential (primary) hypertension Status: Acute Assessment and Plan: Pt will f/U with her PCP about this and change to a heart healthy, low carb, low fat diet. (3) Morbid obesity with BMI of 40.0-44.9, adult: Onset Date: Unknown Code(s): E66.01 - Morbid (severe) obesity due to excess calories; Z68.41 - Body mass index [BMI]40.0-44.9, adult Status: Acute Assessment and Plan: Pt will f/U with her PCP about this and change to a heart healthy, low carb, low fat diet. (4) Hyperlipemia: Onset Date: Unknown Code(s): E78.5 - Hyperlipidemia, unspecified Status: Acute Assessment and Plan: Patient will discuss this with her PCP on her follow-up visit. May need a lipid reducing drug. DS: Summary Hospital Course Hospital Course: Patient presented initially with some upper abdominal pain and a large umbilical hernia which on CT scan seemed to be causing some element of complete or some partial small-bowel obstruction. Upon initially seen her after admission I was able to reduce this and the patient began feeling better. Each day I have reduced it and she has gradually increased her diet and is doing okay. I have taught her how to reduce this. Follow-up x-rays have shown mild dilation of a few loops of small bowel but also gas and stool in the colon so I do not believe is causing obstruction now. After thorough discussion the patient is interested in elective repair and therefore will see here back as an outpatient or set up surgery soon. We have discussed the risks benefits possible complications of a laparoscopic umbilical hernia repair possible open. If we did laparoscopically would use mesh to repair this I would be able to see to make sure we get all the small bowel reduced. She is interested in laparoscopic repair if possible. She will go home today and follow up toward the end of the week. She is concerned about multiple bills that she has to pay I will let her return to work after another day of rest if she is feeling well. She knows how to wear the abdominal binder during the day time leave it off at night and try to reduce her hernia both morning and evening prior to getting up and moving around. She will call the office if she has further problems. Status at Discharge Cognitive/behavioral status at discharge: She understands or problem wishes to proceed with planned noted above Functional status at discharge: independent ambulation Overall status at discharge: patient is back to baseline Time Spent with Patient Time attestation: Total time spent providing and/or coordinating discharge services: Time spent: Greater than 30 minutes Specific discharge activities: patient will reduce the umbilical hernia in the morning when she 1st wakes up in apply the abdominal binder. She will then remove the abdominal binder when she lays down to sleep at night try to reduce the hernia prior to going to sleep and repeat this each day. She knows that if she begins having significant abdominal pain she needs to lay down and reduce the hernia if possible. Exam Const: General: cooperative, no acute distress, alert and awake Orientation/consciousness: patient oriented x3 HENMT: Mouth: Yes moist mucous membranes Neck: Neck: normal visual inspection Chest: Chest palpation & inspection: normal inspection of the chest Resp: Effort & Inspection: normal respiratory effort Auscul
[2021-05-31] MEDS: ACETAMINOPHEN 500 MG TABLET 1000 MG PO (15:33)
[2021-05-31] MEDS: hydrALAZINE HCL 25 MG TABLET PO (15:59)
== END 2021-05-31 18:00 | disposition home or self-care (01) ==
LOC: ANHED 02:25 → ANH2MED 05:03
PROVIDERS: Nurse Practitioner; Admitting Provider Surgery; Emergency Provider Emergency Medicine; PCP Family Medicine; Visit Provider Surgery
DX: K42.0 Umbilical hernia with obstruction, without gangrene (principal); I10 Essential (primary) hypertension; I73.9 Peripheral vascular disease, unspecified; E89.0 Postprocedural hypothyroidism; E66.01 Morbid (severe) obesity due to excess calories; E78.5 Hyperlipidemia, unspecified; K44.9 Diaphragmatic hernia without obstruction or gangrene; R73.03 Prediabetes; Z96.653 Presence of artificial knee joint, bilateral; Z68.41 Body mass index [BMI] 40.0-44.9, adult
CPT/HCPCS: 36415; 74019; 74177; 80048; 80053; 81003; 82948; 83036; 83605; 83690; 83735; 84484; 85025; 96361; 96374; 96375; 96376; 99285; A9270; G0378; J0131; J1170; J2405; J7030; Q9967

== ENCOUNTER 2021-06-01 09:13 | Inpatient (IN) | payer MEDICARE, SELFPAY ==
[2021-06-01] VITALS (10 sets, daily range): BP systolic 152–188; BP diastolic 59–94; PULSE 75–90; RESP 16–20; TEMP 36.3–38; O2SAT 92–99; BMI 42.9; BMI 42.8
--- NOTE | ~2021-06-01 | XR_ITS ---
EXAMINATION: XR chest 2V DATE: 06/05/2021 13:26 INDICATION: Cough. Dyspnea. TECHNIQUE: Frontal and lateral views of the chest were obtained. COMPARISON: Chest 2 views 03/01/2011, CT abdomen and pelvis 06/01/2011 FINDINGS: There is chronic mild elevation of right hemidiaphragm. There is mild atelectasis versus sc arring at the lung bases. There is mild scarring at right lung apex. No pleural effusion or pneumotho rax. The heart size is normal. IMPRESSION: 1. Mild atelectasis versus scarring at the lung bases. Mild scarring at right lung apex. Reviewed, dictated and finalized at location A. IMPRESSION: 1. Mild atelectasis versus scarring at the lung bases. Mild scarring at right l kristine apex.
--- NOTE | ~2021-06-01 | US_ITS ---
US right upper quadrant DATE: 06/01/2021 12:50 INDICATION: Right upper quadrant abdominal pain. Distended gallbladder and mild pericholecystic fat s tranding on 06/01/2021 CT abdomen pelvis examination. TECHNIQUE: Real-time imaging and Doppler analysis COMPARISON: 06/01/2021 CT abdomen pelvis FINDINGS: The pancreas is not well demonstrated sonographically but appears unremarkable on the curre nt CT abdomen pelvis examination. There is hepatic steatosis. No hepatic space-occupying mass lesion is evident. Normal hepatopedal por jessi venous flow direction. There is sludge as well as some apparent stones with shadowing in the dependent aspect of the gallbla dder. Positive sonographic Yee's sign. The common bile duct measures 6.6 mm, borderline size in this 75-year-old patient. . IMPRESSION: Cholelithiasis, sludge in gallbladder Positive sonographic Yee's sign, suggesting acute cholecystitis Borderline, bile ducts size, measuring 6.6 mm Reviewed, dictated and finalized at [facility]. Reviewed, dictated and finalized at location A.
--- NOTE | ~2021-06-01 | CT_ITS ---
EXAMINATION: CT abdomen pelvis w con DATE: 06/01/2021 11:24 INDICATION: Abdominal pain, vomiting. Large ventral abdominal wall hernia containing small bowel TECHNIQUE: Computed tomography (CT) of the abdomen and pelvis was performed with 100 cc Omnipaque 350 intravenous contrast. Automated exposure control and iterative reconstruction technique were employe d. Exam dose: 1519.52 mGy-cm total exam DLP. COMPARISON: 06/15/2021 CT abdomen pelvis 06/01/2021 KUB/obstructive series FINDINGS: There is asymmetric 1.3 cm mass of the left breast. Bilateral diagnostic mammography is rec ommended, with ultrasound if required. There is mild atelectasis at the lung bases. Heart size is within normal range. No pericardial or pleural effusion. Diffuse hepatic steatosis. No hepatic space-occupying mass lesion is detected. The gallbladder is distended and there is mild pericholecystic fat stranding. Further evaluation with gallbladder ultrasound examination is recommended. No bile duct or pancreatic duct dilatation. No pancreatic mass lesion or calcification is detected. Normal splenic size. Normal morphology of the adrenal glands. Several right renal cysts, the largest measuring approximately 1.7 cm. Occasional left renal cysts, largest measuring up to 2.1 cm. No urinary tract calculus or hydroureteronephrosis. The urinary bladder, uterus and adnexal areas are unremarkable. Normal caliber of the abdominal aorta. No intraperitoneal or retroperitoneal or pelvic mass lesion or adenopathy or ascites. There is a large ventral midline abdominal wall hernia, measuring up to 3.9 cm with at the anterior a bdominal wall, measuring up to 6.2 cm AP, 13.8 cm transverse dimension. The hernia contains nonobstru cted nonstrangulated small bowel. Normal appendix. Mild colonic diverticulosis; no CT evidence of diverticulitis. No bowel obstruction, bowel wall thickening, pneumatosis or intraperitoneal free air is evident. No suspicious osteolytic or osteoblastic lesions are noted. IMPRESSION: Distended gallbladder, mild pericholecystic fat stranding. Acute cholecystitis is not ex cluded. Consider gallbladder ultrasound examination Large ventral abdominal wall hernia containing small bowel, without evidence of strangulation or obst ruction 1.3 cm left breast mass; bilateral diagnostic mammography is recommended, with ultrasound if required Hepatic steatosis Bilateral renal cysts Mild colonic diverticulosis; no CT evidence of diverticulitis Reviewed, dictated and finalized at [facility]. Reviewed, dictated and finalized at location A. IMPRESSION: Distended gallbladder, mild pericholecystic fat stranding. Acute c holecystitis is not excluded. Consider gallbladder ultrasound examination Large ventral abdominal wall hernia containing small bowel, without evidence of strangulation or obstruction 1.3 cm left breast mass; bilateral diagnostic mammography is recommended, with ultrasound if required Hepatic steatosis Bilateral renal cysts Mild colonic diverticulosis; no CT evidence of diverticulitis
--- NOTE | 2021-06-01 10:19 | PC.NURSE ---
Phlebotomy called due to patient being stuck multiple times without success at obtaining the blood.
--- NOTE | 2021-06-01 10:27 | ED.ABDPAIN ---
HPI - Abdominal Pain General Chief Complaint: Abdominal Pain <CARMINA Urias - Last Filed: 06/01/21 14:24> Stated Complaint: Abd Pain <CARMINA Urias - Last Filed: 06/01/21 14:24> Time Seen by Provider: 06/01/21 09:25 <CARMINA Urias - Last Filed: 06/01/21 14:24> Source: patient <CARMINA Urias - Last Filed: 06/01/21 14:24> Mode of arrival: ambulatory <CARMINA Urias - Last Filed: 06/01/21 14:24> Limitations: no limitations <CARMINA Urias - Last Filed: 06/01/21 14:24> History of Present Illness HPI narrative: Patient is a 75 year old female who presents with abdominal pain, nausea with dry heaving and reports of no bowel movement x 3-4 days. Patient was discharged last pm after admission with ventral hernia with possible partial obstruction with surgery scheduled for 06/03/21 per patient. Patient reports increased pain and pressure to abdomen starting this am. Patient reports nausea and dry heaving last pm. She denies chest pain or shortness of breath. <CARMINA Urias - Last Filed: 06/01/21 14:24> MD elicited complaint: abdominal pain <CARMINA Urias - Last Filed: 06/01/21 14:24> Related Data Home Medications: Home Medications Medication Instructions Recorded Confirmed thyroid (pork) [Gibson Thyroid] 120 mg PO DAILY 05/29/21 05/29/21 <CARMINA Urias - Last Filed: 06/01/21 14:24> Allergies/Adverse Reactions: Allergies Allergy/AdvReac Type Severity Reaction Status Date / Time codeine Allergy Mild Unknown Verified 05/29/21 05:55 levothyroxine sodium Allergy Mild neck Verified 05/29/21 05:55 swelling Penicillins Allergy Mild Unknown Verified 05/29/21 05:55 <CARMINA Urias - Last Filed: 06/01/21 14:24> Review of Systems Review of Systems: Narrative: CONSTITUTIONAL: Denies fever, chills, or sweats. EYES: Denies visual changes, redness, or discharge. ENT: Denies rhinorrhea, congestion, sore throat, or otalgia. CARDIOVASCULAR: Denies chest pain, palpitations, or edema. RESPIRATORY: Denies cough or dyspnea. GASTROINTESTINAL: Reports abdominal pain, nausea, vomiting and constipation. GENITOURINARY: Denies dysuria or hematuria. SKIN: Denies rash or itching. MUSCULOSKELETAL: Denies back pain, joint pain, or myalgia. NEUROLOGIC: Denies headache, numbness, dizziness, or weakness. PSYCHIATRIC: Denies anxiety or depression. <CARMINA Urias - Last Filed: 06/01/21 14:24> [facility] Past Medical History Medical History: Medical History Anemia 2020 Bilateral swelling of feet and ankles Borderline type 2 diabetes mellitus (Unknown) Hiatal hernia Diagnosed in 2019 Hypothyroidism PVD (peripheral vascular disease) Spontaneous rupture of umbilical cord <CARMINA Urias - Last Filed: 06/01/21 14:24> Surgical History Surgical History: Surgical History H/O thyroidectomy 2007 History of total left knee replacement 2010 History of total right knee replacement 2009 <CARMINA Urias - Last Filed: 06/01/21 14:24> Family History Family History: Family History Father Family history of premature coronary heart disease Family history of heart disease in male family member before age 55 Mother Family history of osteoporosis Family history of malignant neoplasm Family history of congestive heart failure History of hysterectomy Grandparent Liver cancer Sibling ALS (amyotrophic lateral sclerosis) Other Cerebrovascular accident <CARMINA Urias - Last Filed: 06/01/21 14:24> Social History Social History: Social History Smoking status: Never smoker Second hand tobacco smoke exposure: No Alcohol intake: never S
[2021-06-01 10:41] LABS: Basophils Percent Auto 0.2 % (0.2-1.2); Eosinophils Percent Auto 0.1 % (0-4.4); Hematocrit 43.1 % (37.0-47.0); Hemoglobin 14.4 g/dL (12.0-15.0); Immature Granulocyte Absolute 0.07 K/mm3 (0.00-0.031); Immature Granulocyte Percent A 0.5 % (0-0.5); Lymphocytes Absolute Auto 0.72 K/mm3 (0.9-3.2); Lymphocytes Percent Auto 5.2 % (18.3-44.2); Mean Corpuscular HGB Conc 33.4 g/dl (32-36); Mean Corpuscular Hemoglobin 31.1 pg (26-34); Mean Corpuscular Volume 93.1 fl (80-100); Mean Platelet Volume 10.8 fl (7.4-10.4); Monocytes Absolute Auto 1.1 K/mm3 (0.1-0.6); Monocytes Percent Auto 7.5 % (2.6-8.5); Neutrophils Percent Auto 86.5 % (45.5-73.1); Platelet Count Result 219 k/mm3 (150-375); Red Blood Count 4.63 M/mm3 (4.2-5.4); Red Cell Distribution Width 12.5 % (11.5-14.5); White Blood Count 13.9 K/mm3 (4.5-10.0)
[2021-06-01 10:50] LABS: Alanine Aminotransferase 43 U/L (4-35); Albumin Level 4.1 g/dL (3.5-5.1); Alkaline Phosphatase 60 U/L (38-126); Anion Gap 9 mmol/L (8-16); Aspartate Amino Transferase 45 U/L (14-36); Bilirubin,Total 0.7 mg/dL (0.2-1.3); Blood Urea Nitrogen 12 mg/dL (7-17); Calcium 9.4 mg/dL (8.4-10.2); Carbon Dioxide 23 mmol/L (22-30); Chloride 105 mmol/L (98-107); Estimated CRCL calculation 53 ml/min; Estimated Glomerular Filt Rate 48; Glucose 158 mg/dL (65-105); Lipase 75 U/L (23-300); Potassium 4.1 mmol/L (3.4-5.0); Sodium 137 mmol/L (137-145)
[2021-06-01] MEDS: ONDANSETRON INJ 4 MG/2 ML VIAL IV PUSH ×2 (14:30→20:56)
--- NOTE | 2021-06-01 15:47 | PM.IMCN ---
Assessment and Plan Assessment and plan (1) Acute cholecystitis: Code(s): K81.0 - Acute cholecystitis Status: Acute Assessment and Plan: Presented with right upper quadrant kyrie CT shows distended gallbladder with mild pericholecystic fat stranding concerning for acute cholecystitis with cholelithiasis and gallbladder sludge noted on right upper quadrant ultrasound. General surgery is managing. she has been started on IV Cefotetan per general surgery Clear liquid diet (2) Acute kidney injury: Code(s): N17.9 - Acute kidney failure, unspecified Status: Acute Assessment and Plan: Creatinine is slightly elevated at 1.1, improved from Cr prior to discharge on 05/31. She may have a mild CKD based on prior labs. Continue gentle IV fluids and monitor renal function closely Will attempt to contact PCP office to better establish baseline, though labs should be visible in the computer as she is established with an [facility] provider. (3) Borderline type 2 diabetes mellitus: Onset Date: Unknown Code(s): R73.03 - Prediabetes Status: Acute Assessment and Plan: she has reportedly been diagnosed with this. Her A1c is 5.6, which would not be consistent with prediabetes, however I am unsure what her last A1c was. She is not on any diabetes medications and reportedly is managing with diet and exercise no need for glucose monitoring during hospitalization. (4) Primary hypertension: Onset Date: ~05/28/21 Code(s): I10 - Essential (primary) hypertension Status: Acute Assessment and Plan: Blood pressure reviewed and has been elevated today, likely related to pain. Last BP was 169/82. She is not on any antihypertensives, will need to consider addition of antihypertensive agent if BP remains elevated Will add prn hydralazine for systolic BP >180 at this time (5) Umbilical hernia: Code(s): K42.9 - Umbilical hernia without obstruction or gangrene Status: Acute Assessment and Plan: Managed per general surgery at last hospitalization. She was educated on how to reduce the hernia and laparoscopic hernia repair was scheduled for 06/03/[address] Whalen. No evidence of incarceration/strangulation on exam. Management per general surgery. 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 TSH was abnormal in April 2021. Continue armour thyroid 120 mg. Will not recheck TSH at this time as she reports she has not taken her thyroid medicine in several days due to her hospitalization, therefore suspect it will remain abnormal. She will need to repeat a reflex TSH in several weeks as an outpatient following resolution of acute illness. Additional Plan She has mild leukocytosis, likely related to cholecystitis. Will monitor CBC. HPI Data of Consult Consult date: 06/01/21 Requesting Physician: Fabiano Whalen MD Primary Care Provider: Amanda New MD Consult Narrative Narrative: date of admission: 06/01/2021 date of service: 06/01/2021 Yara Aguirre is a 75 year old female with a history of postsurgical hypothyroidism, hypertension, prediabetes, anemia, and recent hospitalization from 05/29/21-05/31/21 for incarcerated hernia who presented to the emergency department on 06/01/2021 with complaints of right upper quadrant pain. She stated at around 9:30 p.m last night she developed pain in the right upper quadrant as well as indigestion. She began having dry heaves but did not vomit. She did not have anything to eat that night but was able to keep down water. Her right upper quadrant pain persisted, and she thought that she pulled a muscle from dry heaving. However, when she woke up this morning her pain was more severe. She rated as 10/10 an
--- NOTE | 2021-06-01 16:05 | ADMGEN ---
This patient, Yara Aguirre, was admitted to [facility] Surg Room 316-01 at 1600. Patient/family oriented to hospital policies and general routines including ID bracelet, bed and alarms, visiting hours, pain management, procedures, bathroom and other care routines, personal items, smoking policy, room service/diet, and visiting hours. Information on how to activate the Rapid Response Team has been discussed. Patient/Family are encouraged to report perceived risks to care and to ask questions if they do not understand what they are told or what they should do.
--- NOTE | 2021-06-01 16:06 | PM.IMHP ---
H&P: HPI History of Present Illness Date/Time: 06/01/21 16:06 Chief Complaint: RUQ abdominal pain Narrative: This is a 75-year-old obese female who presented to the ER today with complaints of right upper quadrant abdominal pain. She was recently admitted from 05/29/21 through 05/31/21 for a large ventral hernia containing small bowel with possible small bowel obstruction. Her ventral hernia was able to be reduced and she was sent home with an abdominal binder and planned to schedule an outpatient ventral hernia repair with Dr. Whalen on . She reports that during her last hospitalization she was having issues with epigastric burning pain that she attributed to indigestion. She was also dealing with constipation. She has not had a BM since last Monday, even after laxatives, suppositories, and an enema during her admission. She reports that yesterday, prior to discharge she ate lunch, which was meatloaf and mashed potatoes. She was then discharged home and continued to have epigastric indigestion and burning pain that was mild. Through the evening, she developed nausea and began dry heaving. After dry heaving, she developed sharp right upper quadrant abdominal pain. She initially thought this was muscular related due to the dry heaving, but the pain was constant and persistent. Due to the unrelenting abdominal pain, she presented to the ER for evaluation. CT scan of the abdomen and pelvis showed a distended gallbladder with mild pericholecystic fat stranding, but no evidence of cholelithiasis, concerning for acute cholecystitis. Again noted as well was a large ventral abdominal wall hernia containing non-obstructed small bowel, 1.3 cm left breast mass, Hepatic steatosis, bilateral renal cysts, mild colonic diverticulosis; no CT evidence of diverticulitis. RUQ abdominal ultrasound showed cholelithiasis with gallbladder sludge and a positive Yee's sign. CBD measuring 6.6 mm. Labs revealed a white blood cell count of 13,900, normal total bilirubin and alk phos, AST 45, ALT 43, and normal lipase. Our service was consulted by the ED physician for possible acute cholecystitis. The patient is now seen in the ER. She reports slight improvement in her RUQ abdominal pain, but still rates this at an 8/10 on a pain scale following IV analgesics. No other complaints at this time. Denies fever or chills. Review of Systems Review of Systems: All systems reviewed & are unremarkable except as noted in HPI and below Constitutional: Constitutional: Reports as per HPI, Denies chills, Denies fatigue and Denies fever(s) Eyes: Eyes: Reports no additional eye complaints and Denies change in vision ENT: Reports system reviewed and no additional complaints, except as documented and Reports Normal hearing present Cardiovascular: Cardiovascular: Reports no additional cardiovascular complaints, Denies chest pain and Denies leg edema Respiratory: Respiratory: Reports no additional respiratory complaints, Denies cough and Denies dyspnea Gastrointestinal: Gastrointestinal: Reports as per HPI, Reports no additional gastrointestinal complaints, Reports abdominal pain (epigastric, RUQ), Denies melena, Denies hematochezia, Reports constipation, Reports heartburn, Denies diarrhea, Denies loose stools, Reports nausea and Denies hematemesis Genitourinary: Genitourinary: Denies hematuria and Denies dysuria Musculoskeletal: Musculoskeletal: Denies abnormal gait, Denies deformity and Denies joint swelling Integumentary/Breasts: Skin/Breast: Denies wounds and Denies jaundice Neurologic: Reports system reviewed and no additional complaints, except as documented, Denies dizziness, Denies focal weakness, Denies numbness and Denies tingling PMFSH Past Medical History Medical History Anemia 2019 Borderline type 2 diabetes mellitus (Unknown) Hiatal hernia Diagnosed in 2019 Hypothyroidism PVD (peripheral vascular disease) Spont
[2021-06-01] MEDS: SODIUM CHLORIDE 0.9% IV 1,000 ML 60 ML IV CONT (16:08)
[2021-06-01] MEDS: DOCUSATE SODIUM 100 MG CAPSULE PO (16:09)
[2021-06-01] MEDS: HYDROcodone/acetaminophen (*CRX) 5-325 MG TABLET 1 TAB PO (21:02)
[2021-06-01 21:16] LABS: Free T4 Free Thyroxine Reflex 0.98 ng/dL (0.78-2.19)
[2021-06-01] MEDS: cefoTEtan DISODIUM INJ 2 GM in DEXTROSE 5% IN WATER 50 ML IVPB (21:32)
[2021-06-02 05:49] VITALS: BP 145/67; PULSE 82; RESP 20; TEMP 37; O2SAT 91
[2021-06-02 06:18] LABS: Basophils Absolute Auto 0.1 K/mm3 (0.0-0.1); Basophils Percent Auto 0.4 % (0.2-1.2); Eosinophils Absolute Auto 0.3 K/mm3 (0-0.3); Eosinophils Percent Auto 2.5 % (0-4.4); Hematocrit 39.9 % (37.0-47.0); Hemoglobin 13.2 g/dL (12.0-15.0); Immature Granulocyte Absolute 0.05 K/mm3 (0.00-0.031); Immature Granulocyte Percent A 0.4 % (0-0.5); Lymphocytes Absolute Auto 1.17 K/mm3 (0.9-3.2); Lymphocytes Percent Auto 9.8 % (18.3-44.2); Mean Corpuscular HGB Conc 33.1 g/dl (32-36); Mean Corpuscular Hemoglobin 31.1 pg (26-34); Mean Corpuscular Volume 94.1 fl (80-100); Mean Platelet Volume 11.1 fl (7.4-10.4); Monocytes Absolute Auto 1.1 K/mm3 (0.1-0.6); Monocytes Percent Auto 9.5 % (2.6-8.5); Neutrophils Absolute Auto 9.2 K/mm3 (1.3-6.7); Neutrophils Percent Auto 77.4 % (45.5-73.1); Platelet Count Result 187 k/mm3 (150-375); Red Blood Count 4.24 M/mm3 (4.2-5.4); Red Cell Distribution Width 12.9 % (11.5-14.5); White Blood Count 11.9 K/mm3 (4.5-10.0)
[2021-06-02 06:30] LABS: Anion Gap 9 mmol/L (8-16); Blood Urea Nitrogen 12 mg/dL (7-17); Calcium 8.6 mg/dL (8.4-10.2); Carbon Dioxide 24 mmol/L (22-30); Chloride 105 mmol/L (98-107); Estimated CRCL calculation 49 ml/min; Estimated Glomerular Filt Rate 44; Glucose 116 mg/dL (65-105); Sodium 138 mmol/L (137-145)
[2021-06-02] MEDS: ACETAMINOPHEN 325 MG TABLET 650 MG PO (07:21)
[2021-06-02] MEDS: DOCUSATE SODIUM 100 MG CAPSULE PO ×2 (08:04→16:57)
[2021-06-02] MEDS: ENOXAPARIN 40 MG/0.4 ML SYRINGE SUB-Q (08:04)
[2021-06-02] MEDS: cefoTEtan DISODIUM INJ 2 GM in DEXTROSE 5% IN WATER 50 ML IVPB ×2 (08:05→20:06)
[2021-06-02] MEDS: THYROID 60 MG TABLET 120 MG PO (08:17)
--- NOTE | 2021-06-02 09:12 | P.CDI_ITS ---
CDI Query Clarification Request -Acute kidney injury has been documented - Creatinine is slightly elevated at 1.1, improved from Cr prior to discharge on 05/31. She may have a mild CKD based on prior labs. -Under lab scanned documents in the record there is a lab summary other facility report from 06/13/08 with a creatinine of 1.31. -Creatinine has ranged from 1.10 to 1.25 from 05/11/21 to 06/02/21 (last two visits). Please clarify renal status: * CKD * Acute renal failure * Acute renal failure on CKD * Unable to determine <Stacey Sidhu RN - Last Filed: 06/02/21 09:18> Clarified Diagnosis (1) Chronic kidney disease: Code(s): N18.9 - Chronic kidney disease, unspecified <Stacey Sidhu RN - Last Filed: 06/02/21 09:18> Status: Acute <Stacey Sidhu RN - Last Filed: 06/02/21 09:18> Assessment and Plan: Let's call it CKD, since she found old labs bouncing between 1.1-1.3 it appears this is a chronic state. <Fabiano Whalen MD - Last Filed: 06/02/21 16:29>
[2021-06-02] MEDS: THYROID 30 MG TABLET PO (09:37)
[2021-06-02] MEDS: polyethylene glycoL 3350 17 GM POWD.PACK PO (09:37)
[2021-06-02] MEDS: SODIUM CHLORIDE 0.9% IV 1,000 ML 60 ML IV CONT (12:10)
[2021-06-02 14:00] VITALS: BP 141/66; PULSE 88; RESP 16; TEMP 36.3; O2SAT 92
--- NOTE | 2021-06-02 15:39 | PM.IMPN ---
Progress Note: A&P Assessment and Plan (1) Acute cholecystitis: Code(s): K81.0 - Acute cholecystitis Status: Acute Assessment and Plan: Presented with right upper quadrant pain. CT shows distended gallbladder with mild pericholecystic fat stranding concerning for acute cholecystitis with cholelithiasis and gallbladder sludge noted on right upper quadrant ultrasound. General surgery is managing. Planning for laparoscopic cholecystectomy tomorrow. Continue IV Cefotetan per general surgery Low fat diet. NPO at midnight (2) Umbilical hernia: Code(s): K42.9 - Umbilical hernia without obstruction or gangrene Status: Acute Assessment and Plan: Managed per general surgery at last hospitalization. She was educated on how to reduce the hernia and laparoscopic hernia repair was scheduled for 06/03/[address] Whalen. No evidence of incarceration/strangulation on exam. Management per general surgery. (3) Borderline type 2 diabetes mellitus: Onset Date: Unknown Code(s): R73.03 - Prediabetes Status: Acute Assessment and Plan: she has reportedly been diagnosed with this. Her A1c is 5.6, which would not be consistent with prediabetes, however I am unsure what her last A1c was. She is not on any diabetes medications and reportedly is managing with diet and exercise no need for glucose monitoring during hospitalization. (4) Elevated blood pressure reading: Code(s): R03.0 - Elevated blood-pressure reading, without diagnosis of hypertension Status: Acute Assessment and Plan: Blood pressure reviewed and had been elevated up to 180s systolic, likely related to pain. Improving today with systolic BP in the 140s. Last BP 141/66. She is not on any antihypertensives, will need to consider addition of antihypertensive agent if BP remains elevated PRN hydralazine for systolic BP >180 Monitor BP trends (5) Chronic kidney disease: Code(s): N18.9 - Chronic kidney disease, unspecified Status: Acute Assessment and Plan: Creatinine is 1.2. Appears to be consistent with baseline on review of prior labs. Creatinine many years ago was elevated, suggesting this is a chronic issue. 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 TSH is 9.7 with normal T3 and T4. Increase armour thyroid to 150 mg. She will need to repeat a reflex TSH in several weeks as an outpatient for further monitoring (7) Left breast mass: Code(s): N63.20 - Unspecified lump in the left breast, unspecified quadrant Status: Acute Assessment and Plan: 1.3 cm left breast mass noted on CT. she has never had a mammogram done before. Will need to arrange outpatient mammogram prior to discharge Subjective Date/time seen: 06/02/21 15:39 Interval history: Date of service: 06/02/2021 Yara Aguirre is a 75-year-old female with history of postsurgical hypothyroidism, hypertension, pre diabetes, anemia, and ventral hernia who is seen in follow-up for acute cholecystitis. She is feeling better today but is still having right upper quadrant pain with any movement. At rest, she has no pain. No nausea or vomiting today. She has been able to tolerate a low-fat diet. She still has not had a bowel movement despite taking several medications to stimulate a bowel movement. Denies fever or chills. Denies dizziness or lightheadedness. no shortness breath, cough, or chest pain. No other concerns at this time. Review of Systems Review of Systems: All systems reviewed & are unremarkable except as noted in HPI and below Exam Narrative: Exam Narrative: Ms. Aguirre is a well-nourished, well-appearing 75-year-old female who is lying semi-recumbent in
[2021-06-02] MEDS: BISACODYL 5 MG TABLET EC PO (15:55)
--- NOTE | 2021-06-02 15:59 | PM.PNGS ---
Progress Note: A&P Assessment and Plan (1) Acute cholecystitis: Code(s): K81.0 - Acute cholecystitis Status: Acute Assessment and Plan: Continue IV Cefotetan. Tolerating a low fat diet. Plans to proceed tomorrow with a laparoscopic cholecystectomy and open umbilical hernia repair tomorrow. Surgery was discussed in detail yesterday and she does not have any additional questions today. NPO after midnight. (2) Umbilical hernia: Code(s): K42.9 - Umbilical hernia without obstruction or gangrene Status: Acute Assessment and Plan: Proceed with surgery tomorrow as planned but Dr. Whalen plans to repair this in an open fashion with sutures. Continue to wear the abdominal binder with activity or ambulation. Still has not had a BM since last Monday. Asked the nurse to give her the dulcolax tab now and encouraged her to get up and walk. The hernia repair will lengthen her lifting restrictions post-op in comparison to a typical laparoscopic cholecystectomy. (3) Acute kidney injury: Code(s): N17.9 - Acute kidney failure, unspecified Status: Acute Assessment and Plan: Creatinine 1.2 today. Could be some chronic kidney disease. Management per Hospitalist. (4) Chronic kidney disease: Code(s): N18.9 - Chronic kidney disease, unspecified Status: Acute (5) Left breast mass: Code(s): N63.20 - Unspecified lump in the left breast, unspecified quadrant Status: Acute Assessment and Plan: Found incidentally on CT. Recommend outpatient bilateral diagnostic mammogram. (6) Borderline type 2 diabetes mellitus: Onset Date: Unknown Code(s): R73.03 - Prediabetes Status: Acute (7) Morbid obesity with BMI of 40.0-44.9, adult: Onset Date: Unknown Code(s): E66.01 - Morbid (severe) obesity due to excess calories; Z68.41 - Body mass index [BMI]40.0-44.9, adult Status: Acute Additional Plan I have discussed the plan of care with Dr. Whalen. Subjective Subjective Date/Time Seen: 06/02/21 15:59 Patient reports: no new complaints, feels better, pain is less, tolerating a regular diet (low fat diet), voiding w/o difficulty, flatus, no bowel movement and afebrile Interval history: Patient reports feeling better today. She denies any abdominal pain at rest, but reports with movement she is still having RUQ abd pain. No nausea or vomiting. She is passing gas, but still no BM. She has had Miralax and Colace today. Tolerating a low fat diet. No other complaints. Review of Systems Review of Systems: All systems reviewed & are unremarkable except as noted in HPI and below Exam Const: General: comfortable, no acute distress, alert and awake Orientation/consciousness: patient oriented x3 Resp: Effort & Inspection: normal respiratory effort Auscultation: clear to auscultation bilaterally Cardio: Rate: regular rate Rhythm: regular rhythm GI: Inspection: obesity and visible herniation (Umbilical hernia, soft and non-tender, abd binder in place) GI Palp: Yes Soft to palpation, Yes Tenderness to palpation present (GI) (RUQ), No Guarding due to palpation present (GI) and No Rebound tenderness present Auscultation: normal bowel sounds Skin: General skin exam: normal color Neuro: General: moves all extremities and no focal motor deficits Extrem: General: no clubbing, cyanosis or edema and no calf tenderness Psych: Mental Status: mental status grossly normal Insight: Good insight present (Psych) Judgement: Good judgement present (Psych) Objective Data Vital Signs Vital Signs: Vital Signs - 24 hr 06/01/21 16:00 06/01/21 16:23 06/01/21 21:27 Temperature 97.4 F L 97.4 F L 99.1 F Pulse Rate 78 78 77 Respiratory Rate 18 18 20 Blood Pressure 163/72 H 163/72 H 152/59 H Pulse Oximetry 95 95 92 06/02/21 05:49 06/02/21 14:00 Temperature 98.6 F 97.3 F L Pulse Rate 82 88 Respiratory Rate 20 16 Blood Pressure 145/67 H 141/66 H Pulse Ox
[2021-06-02] MEDS: HYDROcodone/acetaminophen (*CRX) 5-325 MG TABLET 1 TAB PO (17:02)
[2021-06-02 20:00] VITALS: PULSE 88; RESP 16; O2SAT 92
--- NOTE | 2021-06-02 21:32 | ECG_ITS ---
Measurements Intervals [place] Rate: 78 P: 39 WI: 162 QRS: 50 QRSD: 129 T: 15 QT: 376 QTc: 429 Interpretive Statements SINUS RHYTHM RIGHT BUNDLE BRANCH BLOCK MINIMAL Q WAVES- HIGH LATERAL LEADS ABNORMAL ECG Electronically Signed On 06-02-2021 11:36:46 CDT by Jose Abraham D.O.
[2021-06-02 22:00] VITALS: BP 105/48; PULSE 89; RESP 20; TEMP 36.9; O2SAT 90
[2021-06-03] VITALS (13 sets, daily range): BP systolic 127–147; BP diastolic 61–78; PULSE 84–100; RESP 12–20; TEMP 36.2–36.8; O2SAT 90–97
[2021-06-03] MEDS: ENOXAPARIN 40 MG/0.4 ML SYRINGE SUB-Q (03:08)
--- NOTE | 2021-06-03 06:20 | PC.NURSE ---
Pt down kenia bed to pre op.
[2021-06-03 06:24] LABS: Basophils Percent Auto 0.3 % (0.2-1.2); Eosinophils Absolute Auto 0.5 K/mm3 (0-0.3); Eosinophils Percent Auto 4.5 % (0-4.4); Hematocrit 40.1 % (37.0-47.0); Immature Granulocyte Absolute 0.05 K/mm3 (0.00-0.031); Immature Granulocyte Percent A 0.5 % (0-0.5); Lymphocytes Absolute Auto 1.09 K/mm3 (0.9-3.2); Lymphocytes Percent Auto 10.7 % (18.3-44.2); Mean Corpuscular HGB Conc 32.4 g/dl (32-36); Mean Corpuscular Hemoglobin 30.4 pg (26-34); Mean Corpuscular Volume 93.9 fl (80-100); Mean Platelet Volume 11.5 fl (7.4-10.4); Monocytes Percent Auto 9.7 % (2.6-8.5); Neutrophils Absolute Auto 7.5 K/mm3 (1.3-6.7); Neutrophils Percent Auto 74.3 % (45.5-73.1); Platelet Count Result 192 k/mm3 (150-375); Red Blood Count 4.27 M/mm3 (4.2-5.4); Red Cell Distribution Width 12.9 % (11.5-14.5); White Blood Count 10.2 K/mm3 (4.5-10.0)
[2021-06-03 06:39] LABS: Glucose Point of Care 111 mg/dl (65-105)
[2021-06-03 06:42] LABS: Alanine Aminotransferase 142 U/L (4-35); Albumin Level 3.5 g/dL (3.5-5.1); Alkaline Phosphatase 79 U/L (38-126); Anion Gap 11 mmol/L (8-16); Aspartate Amino Transferase 128 U/L (14-36); Bilirubin,Total 0.5 mg/dL (0.2-1.3); Blood Urea Nitrogen 14 mg/dL (7-17); Calcium 8.2 mg/dL (8.4-10.2); Carbon Dioxide 22 mmol/L (22-30); Chloride 105 mmol/L (98-107); Estimated CRCL calculation 49 ml/min; Estimated Glomerular Filt Rate 44; Glucose 120 mg/dL (65-105); Potassium 3.7 mmol/L (3.4-5.0); Sodium 138 mmol/L (137-145)
--- NOTE | 2021-06-03 06:43 | WPDANESEPPF ---
Anes - Initial Pre Proc Eval Procedure: Operation Date: 06/03/21 07:30 Proposed Procedures p Laparoscopic Cholecystectomy With Possible Intraoperative Cholangiography, Umbilical Hernia Repair With Sutures, Possible Open - Fabiano Whalen MD Date/Time: 06/03/21 06:43 Surgeon: Fabiano Whalen MD Pre Op Diagnosis: Acute cholecystitis with cholelithiasis Patient Data Age: 75 Gender: F Height: 1.7 m Weight: 124.2 kg Last Vital Signs Temp 36.8 C 06/03/21 05:59 Pulse 95 06/03/21 05:59 Resp 20 06/03/21 05:59 BP 127/63 06/03/21 05:59 Pulse Ox 92 06/03/21 05:59 Allergies Allergy/AdvReac Type Severity Reaction Status Date / Time codeine Allergy Mild Unknown Verified 06/01/21 16:20 levothyroxine sodium Allergy Mild neck Verified 06/01/21 16:20 swelling Penicillins Allergy Mild Unknown Verified 06/01/21 16:20 Home Medications Medication Instructions Recorded Confirmed Type folic acid 1 mg tablet 1 mg PO DAILY #30 tablet 05/17/21 06/01/21 Rx thyroid (pork) [[place] Thyroid] 120 mg PO DAILY 05/29/21 06/01/21 History Laboratory Tests 06/02/21 06/03/21 06/03/21 09:09 06:04 06:04 WBC 10.2 K/mm3 H K/mm3 (4.5-10.0) RBC 4.27 M/mm3 M/mm3 (4.2-5.4) Hgb 13.0 g/dL g/dL (12.0-15.0) Hct 40.1 % % (37.0-47.0) MCV 93.9 fl fl (80-100) MCH 30.4 pg pg (26-34) MCHC 32.4 g/dl g/dl (32-36) RDW 12.9 % % (11.5-14.5) Plt Count 192 k/mm3 k/mm3 (150-375) MPV 11.5 fl H fl (7.4-10.4) Immature Gran % (Auto) 0.5 % % (0-0.5) Neut % (Auto) 74.3 % H % (45.5-73.1) Lymph % (Auto) 10.7 % L % (18.3-44.2) Harper % (Auto) 9.7 % H % (2.6-8.5) Eos % (Auto) 4.5 % H % (0-4.4) Baso % (Auto) 0.3 % % (0.2-1.2) Lymph # (Auto) 1.09 K/mm3 K/mm3 (0.9-3.2) Harper # (Auto) 1.0 K/mm3 H K/mm3 (0.1-0.6) Eos # (Auto) 0.5 K/mm3 H K/mm3 (0-0.3) Baso # (Auto) 0.0 K/mm3 K/mm3 (0.0-0.1) Abs Immat Gran (auto) 0.05 K/mm3 H K/mm3 (0.00-0.031) Absolute Neuts (auto) 7.5 K/mm3 H K/mm3 (1.3-6.7) Absolute Nucleated RBC 0.0 K/mm3 K/mm3 (0.0-0.012) Nucleated RBC % 0.0 % % (0.0-0.2) Sodium 138 mmol/L mmol/L (137-145) Potassium 3.7 mmol/L mmol/L (3.4-5.0) Chloride 105 mmol/L mmol/L (98-107) Carbon Dioxide 22 mmol/L mmol/L (22-30) Anion Gap 11 mmol/L mmol/L (8-16) BUN 14 mg/dL mg/dL (7-17) Creatinine 1.20 mg/dL H mg/dL (0.7-1.0) Estim Creat Clear Calc 49 ml/min ml/min Estimated GFR 44 L (59 - ) Glucose 120 mg/dL H mg/dL (65-105) POC Capillary Glucose Calcium 8.2 mg/dL L mg/dL (8.4-10.2) Total Bilirubin 0.5 mg/dL mg/dL (0.2-1.3) AST 128 U/L H U/L (14-36) ALT 142 U/L H U/L (4-35) Alkaline Phosphatase 79 U/L U/L (38-126) Total Protein 7.0 g/dL g/dL (6.3-8.2) Albumin 3.5 g/dL g/dL (3.5-5.1) Blood Type A Positive Antibody Screen Negative 06/03/21 06:36 WBC RBC Hgb Hct MCV MCH MCHC RDW Plt Count MPV Immature Gran % (Auto) Neut % (Auto) Lymph % (Auto) Harper % (Auto) Eos % (Auto) Baso % (Auto) Lymph # (Auto) Harper # (Auto) Eos # (Auto) Baso # (Auto) Abs Immat Gran (auto) Absolute Neuts (auto) Absolute Nucleated RBC Nucleated RBC % Sodium Potassium Chloride Carbon Dioxide Anion Gap BUN Creatinine Estim Creat Clear Calc Estimated GFR Glucose POC Capillary Glucose 111 mg/dl H mg/dl (65-105) Calcium Total Bilirubin
[2021-06-03] MEDS: LACTATED RINGERS 1,000 ML 30 ML IV CONT ×2 (07:00→10:31)
--- NOTE | 2021-06-03 07:10 | WPDHPUPDATE1 ---
History and Physical Update Update Date/Time: 06/03/21 07:10 History and Physical has been reviewed, including an updated exam of the patient. There are changes in the patient's condition. The patient has had 2 days of antibiotics and her WBC is down to normal. Risks, benefits, and alternatives have been discussed and questions answered. Patient agrees to proceed with procedure.
--- NOTE | 2021-06-03 07:30 | PN_ITS ---
This report was moved to the correct visit, [id number] on 06/16/21. Original report was signed by Maurice Choudhary DO 06/08/21 2094. Anes - Initial Pre Proc Eval Procedure: Operation Date: 06/03/21 07:30 Proposed Procedures p Laparoscopic UmbilicalHernia Repair with Mesh, Possible Open - Fabiano Whalen MD Date/Time: 06/02/21 10:31 Surgeon: Fabiano Whalen MD Pre Op Diagnosis: umbilical hernia Patient Data Age: 75 Gender: F Height: Weight: Allergies Allergy/AdvReac Type Severity Reaction Status Date / Time codeine Allergy Mild Unknown Verified 06/01/21 16:20 levothyroxine sodium Allergy Mild neck Verified 06/01/21 16:20 swelling Penicillins Allergy Mild Unknown Verified 06/01/21 16:20 Home Medications Medication Instructions Recorded Confirmed Type folic acid 1 mg tablet 1 mg PO DAILY #30 tablet 05/17/21 06/01/21 Rx thyroid (pork) [[place] Thyroid] 120 mg PO DAILY 05/29/21 06/01/21 History thyroid (pork) [[place] Thyroid] 30 mg PO QAM #30 tablet 06/05/21 Rx thyroid (pork) [[place] Thyroid] 120 mg PO QAM #30 tablet 06/05/21 Rx docusate sodium 100 mg PO BID #14 cap 06/07/21 Rx hydrocodone-acetaminophen 1 tablet PO Q6H PRN #6 tablet 06/07/21 Rx Patient hx anesthesia problems: none Family hx anesthesia problems: none PMFSH Past Medical History Medical History Anemia 2019 Borderline type 2 diabetes mellitus (Unknown) Hiatal hernia Diagnosed in 2018 Hypothyroidism PVD (peripheral vascular disease) Spontaneous rupture of umbilical cord Umbilical hernia Surgical History Surgical History H/O thyroidectomy 2007 History of total left knee replacement 2010 History of total right knee replacement 2009 Family History Family History Father Family history of premature coronary heart disease Family history of heart disease in male family member before age 55 Mother Family history of osteoporosis Family history of malignant neoplasm Family history of congestive heart failure History of hysterectomy Grandparent Liver cancer Sibling ALS (amyotrophic lateral sclerosis) Other Cerebrovascular accident Social History Social History Social History: Ms. Aguirre lives at home alone. She is independent in her daily activities and up until about 2 weeks ago, she was working in home health care. Her PCP is Dr. New. She is not able to provide me with the name of a surrogate decision maker, stating she would like to speak to the other republican first. She would like to be a full code. Smoking status: Never smoker Second hand tobacco smoke exposure: No Alcohol intake: never Substance use: never Gender identity (if verbalized by the patient): Female Spiritual care concerns: No Agree to blood products: No Anes - Eval Final PreProcedure Day of Procedure 06/02/21 10:31 Patient weight: morbidly obese Heart: regular rate and rhythm Lungs: clear to auscultation and normal air movement Airway: Mallampati scale class II Neurological: alert and oriented Last oral intake: >/= 8 hours ASA classification: III Emergent: no Anesthetic plan: proceed Anesthesia type and monitoring: general ETT and standard monitoring Informed Consent: The patient's anesthetic plan and its attendant risks and benefits were discussed with the patient/family/POA. Questions
[2021-06-03] MEDS: BUPIVACAINE/EPINEPHRINE 0.5% 10 ML VIAL 30 ML INFILTRATE (08:25)
--- NOTE | 2021-06-03 10:26 | W.PM.PROC2 ---
Procedure Note - Detailed Date of Procedure 06/03/21 Pre-op Diagnosis 1. Acute cholecystitis with cholelithiasis 2. Large, incarcerated umbilical hernia (omentum and small bowel). Post-op Diagnosis same Procedure Performed 1. Laproscopic Cholecystectomy 2. open repair of large umbilical hernia with sutures. Surgeon Fabiano Whalen MD Accounting Manager Assistant Controller [email or web address] assistant men's lacrosse coach Anesthesia general Indications patient developed right upper quadrant abdominal pain after going home from a admission for partial small-bowel obstruction related to her incarcerated umbilical hernia. CT and ultrasound suggested inflammatory change around the gallbladder. Findings the gallbladder was bright red with green necrotic areas on its wall. There was a large umbilical hernia with about a 4 cm fascial defect. Both omentum and small bowel were incarcerated within this and were carefully taken down at the beginning of the procedure to allow us access to the abdomen with a Peacock cannula. Description of Procedure Patient was seen preoperatively in the holding area and risks, benefits and alternatives confirmed. Patient was taken to the operating room and general anesthesia was induced. A time out was then preformed with the surgery team confirming patient and site of surgery. The abdomen was prepped and draped in the usual sterile fashion. Because this patient had a large umbilical hernia I marked out a smile shaped incision inferior to the umbilicus after carefully massaging the hernia and reducing as much as possible. Incision was made just below the umbilicus with a 15 blade knife. We then elevated the upper flap of the umbilical skin and after exposing a good wide 2 cm area of the umbilical hernia sac I placed 2 hemostats on it and incised it entering the sac. Following this I freed up adhesions within the sac between multiple areas of the omentum and 2 loops of small bowel that were loosely stuck in the hernia. These were all reduced back into the abdomen after removing some of the hernia sac and some pieces of omentum that had scar tissue on them. These were sent for pathology. Once we could see the 4 cm rounded fascial defect I placed 2 stay sutures of O- Vicryl on either side of the fascial defect beneath the umbilicus and was then able to slide in the Peacock cannula through the fascial defect into the peritoneum. The balloon on the Peacock cannula was inflated, hemostasis was achieved within the wound at the umbilicus first and then we proceeded with a laparoscopic cholecystectomy. First under low flow and then under high flow the abdomen was insufflated with carbon dioxide never exceeding a pressure of 14. Two 5 mm and one 12 mm trocars were then introduced under direct vision. The following trocars were introduced under direct vision: a 12 mm in the epigastrium and two 5 mm trocars along the right costal margin laterally in the subcostal area. There were significant omental adhesions to the underside of the gallbladder. These were taken down with blunt dissection and using some Bovie cautery for hemostasis. Upon seeing the gallbladder it was noted that it was very bright red with green spots on it suggesting early necrosis. In order to be able to grasp it we did use a long trocar needle and aspirated 20-40 cc of brown bile from the gallbladder. At least 5 cc of this fluid was sent for a Gram stain and C&S. We were able to dissect this completely away from the neck of the gallbladder. I then carefully used the L-shaped cautery, the 10 mm right angle dissector, and the [place] dissector to dissect out the triangle of [place]. I then was able to dissect out both the cystic duct and cystic artery and identify a window of safety. The gall bladder was grasped and the cystic duct and artery were dissected free and clipped with an 5 mm endo-clip rubber mill operator. The cystic duct and artery were clipped with use of 2 clips on the patient's side and one on the gallbladder s
--- NOTE | 2021-06-03 10:27 | SUR.OPER ---
Patient had signed waiver to keep lower partials in. Partials checked post op by KIM Moyer. No abnormalities noted to partials.
[2021-06-03 10:43] LABS: Glucose Point of Care 157 mg/dl (65-105)
[2021-06-03] MEDS: cefoTEtan DISODIUM INJ 2 GM in DEXTROSE 5% IN WATER 50 ML IVPB ×2 (11:41→20:16)
[2021-06-03] MEDS: THYROID 60 MG TABLET 120 MG PO (11:47)
[2021-06-03] MEDS: DOCUSATE SODIUM 100 MG CAPSULE PO ×2 (11:47→17:09)
[2021-06-03] MEDS: THYROID 30 MG TABLET PO (11:47)
[2021-06-03] MEDS: polyethylene glycoL 3350 17 GM POWD.PACK PO (11:47)
[2021-06-03] MEDS: SODIUM CHLORIDE 0.9% IV 1,000 ML 60 ML IV CONT (12:56)
[2021-06-03] MEDS: HYDROcodone/acetaminophen (*CRX) 5-325 MG TABLET 1 TAB PO ×2 (14:32→21:54)
--- NOTE | 2021-06-03 14:41 | PM.IMPN ---
Progress Note: A&P Assessment and Plan (1) Acute cholecystitis: Code(s): K81.0 - Acute cholecystitis Status: Acute Assessment and Plan: Presented with right upper quadrant pain. CT shows distended gallbladder with mild pericholecystic fat stranding concerning for acute cholecystitis with cholelithiasis and gallbladder sludge noted on right upper quadrant ultrasound. Now s/p laparoscopic cholecystectomy performed today by Dr. Whalen. General surgery managing. Continue IV Cefotetan per general surgery (2) Umbilical hernia: Code(s): K42.9 - Umbilical hernia without obstruction or gangrene Status: Acute Assessment and Plan: Now s/p open repair of large umbilical hernia with sutures. Management per general surgery. Continue abdominal binder (3) Borderline type 2 diabetes mellitus: Onset Date: Unknown Code(s): R73.03 - Prediabetes Status: Acute Assessment and Plan: She has reportedly been diagnosed with this. Her A1c is 5.6, which would not be consistent with prediabetes, however I am unsure what her last A1c was. She is not on any diabetes medications and reportedly is managing with diet and exercise no need for glucose monitoring during hospitalization. (4) Elevated blood pressure reading: Code(s): R03.0 - Elevated blood-pressure reading, without diagnosis of hypertension Status: Acute Assessment and Plan: Blood pressure reviewed and initially was elevated up to 180s systolic, likely related to pain. BP has improved with last BP 144/73. She is not on any antihypertensives, will need to consider addition of antihypertensive agent if BP remains elevated PRN hydralazine for systolic BP >180 Monitor BP trends (5) Chronic kidney disease: Code(s): N18.9 - Chronic kidney disease, unspecified Status: Acute Assessment and Plan: Creatinine is 1.2. Appears to be consistent with baseline on review of prior labs. Creatinine many years ago was elevated, suggesting this is a chronic issue. 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 TSH is 9.7 with normal T3 and T4. Increased armour thyroid to 150 mg. She will need to repeat a reflex TSH in several weeks as an outpatient for further monitoring (7) Left breast mass: Code(s): N63.20 - Unspecified lump in the left breast, unspecified quadrant Status: Acute Assessment and Plan: 1.3 cm left breast mass noted on CT. she has never had a mammogram done before. Will need to arrange outpatient diagnostic mammogram prior to discharge (8) Transaminitis: Code(s): R74.01 - Elevation of levels of liver transaminase levels Status: Acute Assessment and Plan: Increase in AST and ALT today up to 128 and 142, respectively. There is evidence of cholelithiasis/gallbladder sludge. Trend LFTs Consider further evaluation if remaining elevated tomorrow. Subjective Date/time seen: 06/03/21 14:41 Interval history: Date of service: 06/03/2021 Yara Aguirre is a 75-year-old female with history of postsurgical hypothyroidism, hypertension, pre diabetes, anemia, and ventral hernia who is seen in follow-up for acute cholecystitis and is now s/p laparoscopic cholecystectomy. She had just returned from recovery and is groggy from anesthesia. She denies abdominal pain. No nausea or vomiting following surgery. No shortness of breath or chest pain. Review of Systems Review of Systems: All systems reviewed & are unremarkable except as noted in HPI and below Exam Narrative: Exam Narrative: Ms. Aguirre is a well-nourished, well-appearing 75-year-old female who is lying semi-recumbent in bed. She appears comfortable and is in NARD.
--- NOTE | 2021-06-03 16:00 | PM.PNGS ---
Progress Note: A&P Assessment and Plan (1) Acute cholecystitis: Onset Date: ~06/01/21 Code(s): K81.0 - Acute cholecystitis Status: Acute Assessment and Plan: This was the main reason for the patient's admission. She had now undergone laparoscopic cholecystectomy. She is improving. Will recheck labs in the morning. She can gradually increase her diet from liquids up to a low-fat diet overnight if she feels well. (2) Chronic kidney disease: Onset Date: ~2017 Code(s): N18.9 - Chronic kidney disease, unspecified Status: Acute Assessment and Plan: Apparently there is some labs in the system that show a creatinine up to 1.3 once in 2018. Therefore, we believe the patient has had some element of chronic kidney disease. (3) Left breast mass: Onset Date: Unknown Code(s): N63.20 - Unspecified lump in the left breast, unspecified quadrant Status: Acute Assessment and Plan: This was seen on her to recent CTs. Will help patient schedule a mammogram and possible ultrasound on the left as an outpatient after she recovers from her gallbladder surgery. (4) Umbilical hernia: Onset Date: Unknown Code(s): K42.9 - Umbilical hernia without obstruction or gangrene Status: Acute Assessment and Plan: This was repaired with sutures at the time of her gallbladder surgery. She is wearing an abdominal binder. She is not having a lot of pain post surgery. Additional Plan Appreciate medicine/Hospitalist's help. We need to decide on her home medications tomorrow. Hopefully patient will be discharged tomorrow after either breakfast or lunch if she can go up to a low-fat soft diet. Subjective Subjective Date/Time Seen: 06/03/21 16:00 Patient reports: no new complaints and feels better Interval history: Postop check on same day as surgery. Patient is well awake now. She states she feels a low groggy still. Otherwise does not have much appetite but will try some liquids. She does not have a lot of pain. She did take 1 pain pill an hour or so ago. Review of Systems Constitutional: Constitutional: Reports no additional constitutional complaints ENT: Reports other (Mucous Membranes moist.) Cardiovascular: Cardiovascular: Denies dyspnea Respiratory: Respiratory: Denies pain on inspiration and Denies dyspnea Musculoskeletal: Musculoskeletal: Reports other (No calf swelling or edema) Integumentary/Breasts: Skin/Breast: Reports system reviewed and no additional complaints, except as docu Exam Const: General: cooperative, no acute distress, alert and awake Orientation/consciousness: patient oriented x3 HENMT: Mouth: Yes moist mucous membranes Neck: Neck: normal visual inspection Chest: Chest palpation & inspection: normal inspection of the chest Resp: Effort & Inspection: normal respiratory effort Auscultation: clear to auscultation bilaterally Cardio: Jugular venous distension: no JVD Rate: regular rate Rhythm: regular rhythm GI: Inspection: normal to inspection and incision ( Not inspected now as they are underneath her abdominal binder.) Auscultation: Hypoactive bowel sounds present Rectal Exam: deferred Neuro: General: patient oriented x3 and moves all extremities Speech: normal speech Extrem: General: normal exam except as noted Psych: Mental Status: mental status grossly normal Speech and movement: Normal speech and movement present Affect: normal affect Thought content: Yes Normal thought content present Objective Data Vital Signs Vital Signs: Vital Signs - 24 hr 06/02/21 20:00 06/02/21 22:00 06/03/21 05:59 Temperature 36.9 C 36.8 C Pulse Rate 88 89 95 Respiratory Rate 16 20 20 Blood Pressure 105/48 L 127/63 Pulse Oximetry 92 90 92 06/03/21 07:10 06/03/21 10:31 06/03/21 10:45 Temperature 36.6 C 36.2 C L Pulse Rate 92 100 95 Respiratory Rate 16 16 Blood Pressure 135/61 142/75 H 140/78 Pulse Ox
[2021-06-04] VITALS (7 sets, daily range): BP systolic 131–149; BP diastolic 52–70; PULSE 55–106; RESP 18–22; TEMP 36.3–37.6; O2SAT 90–95
[2021-06-04] MEDS: BISACODYL 5 MG TABLET EC PO (04:28)
[2021-06-04] MEDS: HYDROcodone/acetaminophen (*CRX) 7.5-325 MG TABLET 1 TAB PO ×2 (04:28→13:49)
[2021-06-04 06:30] LABS: Hematocrit 38.3 % (37.0-47.0); Hemoglobin 12.3 g/dL (12.0-15.0); Mean Corpuscular HGB Conc 32.1 g/dl (32-36); Mean Corpuscular Hemoglobin 31.2 pg (26-34); Mean Corpuscular Volume 97.2 fl (80-100); Mean Platelet Volume 11.8 fl (7.4-10.4); Platelet Count Result 213 k/mm3 (150-375); Red Blood Count 3.94 M/mm3 (4.2-5.4); Red Cell Distribution Width 12.8 % (11.5-14.5); White Blood Count 11.1 K/mm3 (4.5-10.0)
[2021-06-04 06:44] LABS: Alanine Aminotransferase 140 U/L (4-35); Albumin Level 3.3 g/dL (3.5-5.1); Alkaline Phosphatase 74 U/L (38-126); Anion Gap 6 mmol/L (8-16); Aspartate Amino Transferase 109 U/L (14-36); Bilirubin,Total 0.5 mg/dL (0.2-1.3); Blood Urea Nitrogen 14 mg/dL (7-17); Calcium 8.2 mg/dL (8.4-10.2); Carbon Dioxide 25 mmol/L (22-30); Chloride 104 mmol/L (98-107); Estimated CRCL calculation 49 ml/min; Estimated Glomerular Filt Rate 44; Glucose 124 mg/dL (65-105); Potassium 4.1 mmol/L (3.4-5.0); Sodium 135 mmol/L (137-145)
[2021-06-04] MEDS: THYROID 60 MG TABLET 120 MG PO (08:41)
[2021-06-04] MEDS: ENOXAPARIN 40 MG/0.4 ML SYRINGE SUB-Q (08:41)
[2021-06-04] MEDS: THYROID 30 MG TABLET PO (08:41)
[2021-06-04] MEDS: cefoTEtan DISODIUM INJ 2 GM in DEXTROSE 5% IN WATER 50 ML IVPB (08:41)
[2021-06-04] MEDS: DOCUSATE SODIUM 100 MG CAPSULE PO ×2 (08:41→18:10)
[2021-06-04] MEDS: polyethylene glycoL 3350 17 GM POWD.PACK PO (08:41)
--- NOTE | 2021-06-04 13:29 | WPDANESPN ---
Anes - Prog Note Post-Op Date/Time: 06/04/21 13:29 Cardiovascular status: normal Respiratory status: normal Airway patency: baseline Mental status: baseline Post-Op hydration status: normal Vital Signs: Last Vital Signs Temp 36.6 C 06/04/21 12:00 Pulse 81 06/04/21 12:00 Resp 22 H 06/04/21 12:00 BP 131/59 L 06/04/21 12:00 Pulse Ox 95 06/04/21 12:00 Pain Score (VAS): 1 I/O: Intake & Output 06/03/21 06/04/21 06/04/21 23:59 07:59 15:59 Intake Total 540 200 240 Balance 540 200 240 Laboratory Tests 06/04/21 05:49 06/04/21 05:49 06/04/21 06/04/21 05:49 05:49 WBC 11.1 H RBC 3.94 L Hgb 12.3 Hct 38.3 MCV 97.2 MCH 31.2 MCHC 32.1 RDW 12.8 Plt Count 213 MPV 11.8 H Sodium 135 L Potassium 4.1 Chloride 104 Carbon Dioxide 25 Anion Gap 6 L BUN 14 Creatinine 1.20 H Estim Creat Clear Calc 49 Estimated GFR 44 L Glucose 124 H Calcium 8.2 L Total Bilirubin 0.5 AST 109 H ALT 140 H Alkaline Phosphatase 74 Total Protein 7.0 Albumin 3.3 L Microbiology 06/03/21 08:47 Bile Anaerobic Culture - Preliminary Post-procedural complaints: none Patient Feedback: Patient satisfied with anesthetic care.
--- NOTE | 2021-06-04 13:51 | PM.PNGS ---
Progress Note: A&P Assessment and Plan (1) Acute cholecystitis: Onset Date: ~06/01/21 Code(s): K81.0 - Acute cholecystitis Status: Acute Assessment and Plan: this was main reason for the patient's admission. She received another 24 hours of antibiotics and I stop these. Will only restart them of her white count goes up or if she starts having a fever. I am not concerned about her slightly elevated AST ALT in view of the fact she had anesthesia plus she has fat her liver disease. The total bilirubin and alk-phos are normal which would be the ones that go up typically if there is a stone (2) Chronic kidney disease: Onset Date: ~2017 Code(s): N18.9 - Chronic kidney disease, unspecified Status: Acute Assessment and Plan: As per hospitalist. This is stain stable with hydration. (3) Transaminitis: Onset Date: ~05/2021 Code(s): R74.01 - Elevation of levels of liver transaminase levels Status: Acute Assessment and Plan: Repeat CMP in a.m. (4) Left breast mass: Onset Date: Unknown Code(s): N63.20 - Unspecified lump in the left breast, unspecified quadrant Status: Acute Assessment and Plan: mammogram as an outpatient after her follow-up in the office. (5) Umbilical hernia: Onset Date: Unknown Code(s): K42.9 - Umbilical hernia without obstruction or gangrene Status: Acute Assessment and Plan: Doing well postop day 1 except for pain. She has still not had a bowel movement will have her take milk a magnesia again tonight if she has not had one. Additional Plan Was planning on having patient go home however she is very weak and PT evaluated her and she could only walk a few steps. Will ask case management to review her situation and hopefully help her get respite care at [facility] for 1 week to follow up with further healing and PT. She lives by herself and does not have family to help. Time Spent With Patient Time with patient: 15 - 25 minutes Subjective Subjective Date/Time Seen: 06/04/21 13:51 Post Op day: 1 Patient reports: still having pain, flatus and afebrile Interval history: Patient doing okay postop day 1. Feels very weak. Therefore, we did get PT to work with her but she is complain of pain at her incision site at the umbilicus and having difficulty moving. She has been pretty much bed ridden for 3-5 days shows probably week secondary to that. Labs look good except for slightly elevated AST ALT which will be repeated tomorrow. Since she lives by herself will get case management to look in to have respite care for 1 week to do PT and get stronger. Review of Systems Constitutional: Constitutional: Reports no additional constitutional complaints ENT: Reports other (Mucous Membranes moist.) Cardiovascular: Cardiovascular: Denies dyspnea Respiratory: Respiratory: Denies pain on inspiration and Denies dyspnea Musculoskeletal: Musculoskeletal: Reports other (No calf swelling or edema) Integumentary/Breasts: Skin/Breast: Reports system reviewed and no additional complaints, except as docu Exam Const: General: cooperative, no acute distress, alert and awake Orientation/consciousness: patient oriented x3 HENMT: Mouth: Yes moist mucous membranes Neck: Neck: normal visual inspection Chest: Chest palpation & inspection: normal inspection of the chest Resp: Effort & Inspection: normal respiratory effort Auscultation: clear to auscultation bilaterally Cardio: Jugular venous distension: no JVD Rate: regular rate Rhythm: regular rhythm GI: Inspection: incision, obesity and no visible herniation GI Palp: Yes abdominal tenderness ( Near incisions) Rectal Exam: deferred Other: incisions are clean and dry. There is a 4 x 4 and Tegaderm purposely on the umbilicus for 3 days noted to try to keep it invaginated. Patient may shower over this. : External Female Exam: normal external appe
--- NOTE | 2021-06-04 16:43 | PM.IMPN ---
Progress Note: A&P Assessment and Plan (1) Acute cholecystitis: Onset Date: ~06/01/21 Code(s): K81.0 - Acute cholecystitis Status: Acute Assessment and Plan: Presented with right upper quadrant pain. CT showed distended gallbladder with mild pericholecystic fat stranding concerning for acute cholecystitis with cholelithiasis and gallbladder sludge noted on right upper quadrant ultrasound. S/p laparoscopic cholecystectomy performed 06/03/[address] Whalen. General surgery managing. (2) Umbilical hernia: Onset Date: Unknown Code(s): K42.9 - Umbilical hernia without obstruction or gangrene Status: Acute Assessment and Plan: S/p open repair of large umbilical hernia with sutures on 06/03/[address] Whalen. Management per general surgery. Continue abdominal binder (3) Borderline type 2 diabetes mellitus: Onset Date: Unknown Code(s): R73.03 - Prediabetes Status: Acute Assessment and Plan: She has reportedly been diagnosed with this. Her A1c is 5.6, which would not be consistent with prediabetes, however I am unsure what her last A1c was. She is not on any diabetes medications and reportedly is managing with diet and exercise no need for glucose monitoring during hospitalization. (4) Elevated blood pressure reading: Code(s): R03.0 - Elevated blood-pressure reading, without diagnosis of hypertension Status: Acute Assessment and Plan: Blood pressure reviewed and initially, likely due to pain, but has improved. Last BP 131/59 PRN hydralazine for systolic BP >180 Monitor BP trends (5) Chronic kidney disease: Onset Date: ~2017 Code(s): N18.9 - Chronic kidney disease, unspecified Status: Acute Assessment and Plan: Creatinine is 1.2. Appears to be consistent with baseline on review of prior labs. Creatinine many years ago was elevated, suggesting this is a chronic issue. 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 TSH is 9.7 with normal T3 and T4. Increased armour thyroid to 150 mg. She will need to repeat a reflex TSH in several weeks as an outpatient for further monitoring (7) Left breast mass: Onset Date: Unknown Code(s): N63.20 - Unspecified lump in the left breast, unspecified quadrant Status: Acute Assessment and Plan: 1.3 cm left breast mass noted on CT. she has never had a mammogram done before. Will need to arrange outpatient diagnostic mammogram prior to discharge (8) Transaminitis: Onset Date: ~05/2021 Code(s): R74.01 - Elevation of levels of liver transaminase levels Status: Acute Assessment and Plan: AST and ALT with sharp increase on 06/03/21 (preoperatively). May be related to acute cholecystitis. Additionally, she does have diffuse hepatic steatosis noted on CT. LFTs have improved today. Total bili wnl. Trend LFTs Consider further evaluation if remaining elevated tomorrow. (9) Generalized weakness: Code(s): R53.1 - Weakness Status: Acute Assessment and Plan: She feels too weak to go home and care for herself. PT/OT has been ordered Care coordination following for possible SNF placement Subjective Date/time seen: 06/04/21 16:43 Interval history: Date of service: 06/03/2021 Yara Aguirre is a 75-year-old female with history of postsurgical hypothyroidism, hypertension, pre diabetes, anemia, and ventral hernia who is seen in follow-up for acute cholecystitis and is now s/p laparoscopic cholecystectomy. She had just returned from recovery and is groggy from anesthesia. She denies abdominal pain. No nausea or vomiting following surgery. No shortness of breath or chest pain. Exam Nito
[2021-06-05] VITALS (7 sets, daily range): BP systolic 135–138; BP diastolic 52–77; PULSE 97–101; RESP 18–20; TEMP 36.1–37.8; O2SAT 90–95
[2021-06-05 06:25] LABS: Basophils Absolute Auto 0.1 K/mm3 (0.0-0.1); Basophils Percent Auto 0.5 % (0.2-1.2); Eosinophils Absolute Auto 0.3 K/mm3 (0-0.3); Eosinophils Percent Auto 3.1 % (0-4.4); Hematocrit 38.6 % (37.0-47.0); Hemoglobin 11.9 g/dL (12.0-15.0); Immature Granulocyte Absolute 0.08 K/mm3 (0.00-0.031); Immature Granulocyte Percent A 0.8 % (0-0.5); Immature Platelet Fraction Pct 8.7 % (0.9-11.2); Lymphocytes Absolute Auto 0.94 K/mm3 (0.9-3.2); Lymphocytes Percent Auto 9.6 % (18.3-44.2); Mean Corpuscular HGB Conc 30.8 g/dl (32-36); Mean Corpuscular Hemoglobin 30.6 pg (26-34); Mean Corpuscular Volume 99.2 fl (80-100); Mean Platelet Volume 11.7 fl (7.4-10.4); Monocytes Absolute Auto 1.1 K/mm3 (0.1-0.6); Monocytes Percent Auto 11.5 % (2.6-8.5); Neutrophils Absolute Auto 7.3 K/mm3 (1.3-6.7); Neutrophils Percent Auto 74.5 % (45.5-73.1); Platelet Count Result 204 k/mm3 (150-375); Red Blood Count 3.89 M/mm3 (4.2-5.4); Red Cell Distribution Width 13.1 % (11.5-14.5); White Blood Count 9.8 K/mm3 (4.5-10.0)
[2021-06-05 06:36] LABS: Alanine Aminotransferase 152 U/L (4-35); Albumin Level 3.3 g/dL (3.5-5.1); Alkaline Phosphatase 93 U/L (38-126); Anion Gap 6 mmol/L (8-16); Aspartate Amino Transferase 134 U/L (14-36); Bilirubin,Total 0.6 mg/dL (0.2-1.3); Blood Urea Nitrogen 14 mg/dL (7-17); Calcium 8.2 mg/dL (8.4-10.2); Carbon Dioxide 23 mmol/L (22-30); Chloride 106 mmol/L (98-107); Estimated CRCL calculation 59 ml/min; Estimated Glomerular Filt Rate 54; Glucose 111 mg/dL (65-105); Potassium 4.5 mmol/L (3.4-5.0); Sodium 135 mmol/L (137-145)
[2021-06-05] MEDS: DOCUSATE SODIUM 100 MG CAPSULE PO ×2 (08:40→16:42)
[2021-06-05] MEDS: THYROID 30 MG TABLET PO (08:40)
[2021-06-05] MEDS: ENOXAPARIN 40 MG/0.4 ML SYRINGE SUB-Q (08:40)
[2021-06-05] MEDS: THYROID 60 MG TABLET 120 MG PO (08:40)
[2021-06-05] MEDS: polyethylene glycoL 3350 17 GM POWD.PACK PO (08:40)
--- NOTE | 2021-06-05 10:26 | PM.PNGS ---
Progress Note: A&P Assessment and Plan (1) Acute cholecystitis: Onset Date: ~06/01/21 Code(s): K81.0 - Acute cholecystitis Status: Acute Assessment and Plan: healing appropriately, working on SNF placement. will need COVID test prior to discharge. Increase activity, add Ensure to diet per patient request. (2) Umbilical hernia: Onset Date: Unknown Code(s): K42.9 - Umbilical hernia without obstruction or gangrene Status: Acute (3) Transaminitis: Onset Date: ~05/2021 Code(s): R74.01 - Elevation of levels of liver transaminase levels Status: Acute Assessment and Plan: repeat in AM Subjective Subjective Date/Time Seen: 06/05/21 10:26 Interval history: Slowly improving. Tolerating diet, but not much appetite. Working with PT. Still on supplemental O2. Exam GI: Inspection: incision (intact with glue) GI Palp: Yes Tenderness to palpation present (GI) (appropriate postop) Objective Data Vital Signs Vital Signs: Vital Signs - 24 hr 06/04/21 12:00 06/04/21 13:52 06/04/21 22:00 Temperature 36.6 C 36.7 C Pulse Rate 81 106 H Respiratory Rate 22 H 20 Blood Pressure 131/59 L 143/61 H Pulse Oximetry 95 91 91 06/05/21 06:00 06/05/21 08:00 Temperature 36.2 C L Pulse Rate 101 H Respiratory Rate 20 Blood Pressure 136/58 L Pulse Oximetry 90 91 Intake/Output Intake/Output: Intake & Output 06/02/21 06/03/21 06/04/21 06/05/21 23:59 23:59 23:59 23:59 Intake Total 2560 2790 1330 340 Output Total 590 Balance 2560 2790 740 340 Meds/Results Medications: Active Medications Generic Name Dose Route Start Last Admin Trade Name Freq PRN Reason Stop Dose Admin Acetaminophen 500 mg 06/03/21 11:26 Acetaminophen 500 Mg Tablet PO Q6H PRN Mild Pain (1-3) or Fever Hydrocodone Bitart/Acetaminophen 1 tab 06/03/21 11:26 06/04/21 13:49 Hydrocodone/Acetaminophen (*Crx) 7.5-325 Mg Tablet PO 1 tab Q6H PRN Administration Pain Rated 7-10 Hydrocodone Bitart/Acetaminophen 1 tab 06/03/21 12:02 06/03/21 21:54 Hydrocodone/Acetaminophen (*Crx) 5-325 Mg Tablet PO 1 tab Q4H PRN Administration Moderate Pain (4-6) Al Hydrox/Mg Hydrox/Simethicone 30 ml 06/01/21 14:15 Mag Hydrox/Al Hydrox/Simeth 30 Ml Udc PO QID PRN Dyspepsia Bisacodyl 5 mg 06/01/21 14:15 06/04/21 04:28 Bisacodyl 5 Mg Tablet Ec PO 5 mg DAILY PRN Administration Constipation Diphenhydramine HCl 25 mg 06/03/21 11:26 Diphenhydramine Hcl Inj 50 Mg/Ml Vial IV PUSH Q6H PRN Itching Docusate Sodium 100 mg 06/01/21 17:00 06/05/21 08:40 Docusate Sodium 100 Mg Capsule PO 100 mg BID VANESSA Administration Enoxaparin Sodium 40 mg 06/02/21 09:00 06/05/21 08:40 Enoxaparin 40 Mg/0.4 Ml Syringe SUB-Q 40 mg DAILY VANESSA Administration Hydralazine HCl 10 mg 06/01/21 16:12 Hydralazine Hcl 20 Mg/Ml Vial IV PUSH Q8H PRN SBP >180 Naloxone HCl 0.1 mg 06/01/21 14:15 Naloxone Hcl 0.4 Mg/Ml Vial IV PUSH Q2M PRN Opiate Reversal Ondansetron HCl 4 mg 06/01/21 14:15 06/01/21 20:56 Ondansetron Inj 4 Mg/2 Ml Vial IV PUSH 4 mg Q6H PRN Administration Nausea And Vomiting Polyethylene Glycol 17 gm 06/02/21 09:00 06/05/21 08:40 Polyethylene Glycol 3350 17 Gm Powd.Pack PO 17 gm QAM VANESSA Administration Thyroid 120 mg 06/02/21 09:00 06/05/21 08:40 Thyroid 60 Mg Tablet PO 120 mg QAM VANESSA Administration Thyroid 30 mg 06/02/21 09:00 06/05/21 08:40 Thyroid 30 Mg Tablet PO 30 mg QAM VANESSA Administration Radiology Results: ITS Impressions Abdomen/Pelvis CT 06/01/21 11:26 IMPRESSION: Distended gallbladder, mild pericholecystic fat stranding. Acute cholecystitis is not excluded. Consider gallbladder ultrasound examination Large ventral abdominal wall hernia containing small bowel, without evidence of strangulation or obstruction
--- NOTE | 2021-06-05 12:45 | PM.IMPN ---
Progress Note: A&P Assessment and Plan (1) Acute cholecystitis: Onset Date: ~06/01/21 Code(s): K81.0 - Acute cholecystitis Status: Acute Assessment and Plan: Presented with right upper quadrant pain. CT showed distended gallbladder with mild pericholecystic fat stranding concerning for acute cholecystitis with cholelithiasis and gallbladder sludge noted on right upper quadrant ultrasound. S/p laparoscopic cholecystectomy performed 06/03/[address] Whalen. General surgery managing. (2) Umbilical hernia: Onset Date: Unknown Code(s): K42.9 - Umbilical hernia without obstruction or gangrene Status: Acute Assessment and Plan: S/p open repair of large umbilical hernia with sutures on 06/03/[address] Whalen. Management per general surgery. Continue abdominal binder (3) Borderline type 2 diabetes mellitus: Onset Date: Unknown Code(s): R73.03 - Prediabetes Status: Acute Assessment and Plan: She has reportedly been diagnosed with this. Her A1c is 5.6, which would not be consistent with prediabetes, however I am unsure what her last A1c was. She is not on any diabetes medications and reportedly is managing with diet and exercise no need for glucose monitoring during hospitalization. (4) Elevated blood pressure reading: Code(s): R03.0 - Elevated blood-pressure reading, without diagnosis of hypertension Status: Acute Assessment and Plan: Blood pressure reviewed and initially, likely due to pain, but has improved. Last BP 136/59 PRN hydralazine for systolic BP >180 Monitor BP trends (5) Chronic kidney disease: Onset Date: ~2017 Code(s): N18.9 - Chronic kidney disease, unspecified Status: Acute Assessment and Plan: Creatinine has been consistent around 1.2. Appears stable on review of prior labs. Creatinine many years ago was elevated, suggesting this is a chronic issue. 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 TSH is 9.7 with normal T3 and T4. Continue armour thyroid at increased dose of 150 mg. She will need to repeat a reflex TSH in several weeks as an outpatient for further monitoring (7) Left breast mass: Onset Date: Unknown Code(s): N63.20 - Unspecified lump in the left breast, unspecified quadrant Status: Acute Assessment and Plan: 1.3 cm left breast mass noted on CT. she has never had a mammogram done before. Will need to arrange outpatient diagnostic mammogram prior to discharge (8) Transaminitis: Onset Date: ~05/2021 Code(s): R74.01 - Elevation of levels of liver transaminase levels Status: Acute Assessment and Plan: AST and ALT with sharp increase on 06/03/21 (preoperatively). May be related to acute cholecystitis. Additionally, she does have diffuse hepatic steatosis noted on CT. Total bili wnl. Trend LFTs Plan for follow up labs in 1 week to monitor for improvement/resolution (9) Generalized weakness: Code(s): R53.1 - Weakness Status: Acute Assessment and Plan: She felt too weak to go home and care for herself. PT/OT has been ordered Care coordination following for SNF placement (10) Hypoxia: Code(s): R09.02 - Hypoxemia Status: Acute Assessment and Plan: Unable to be weaned off O2 following surgery. Currently maintaining adequate O2 sats on 1 L. Did not tolerate weaning to room air yesterday continue supplemental O2 as needed with goal saturation 92% or above. wean to goal encouraged incentive spirometry use will obtain CXR O2 sats will need to be monitored at outside facility with supplemental oxygen prn. instructions have been provided for facility to comple
[2021-06-05] MEDS: ACETAMINOPHEN 500 MG TABLET PO (23:11)
[2021-06-06 06:00] VITALS: BP 141/66; PULSE 85; RESP 20; TEMP 36.3; O2SAT 94
[2021-06-06 07:07] LABS: Mean Platelet Volume 11.3 fl (7.4-10.4); Platelet Count Result 203 k/mm3 (150-375)
[2021-06-06 07:39] LABS: Alanine Aminotransferase 152 U/L (4-35); Albumin Level 3.1 g/dL (3.5-5.1); Alkaline Phosphatase 108 U/L (38-126); Aspartate Amino Transferase 127 U/L (14-36); Bilirubin,Total 0.5 mg/dL (0.2-1.3)
[2021-06-06 08:00] VITALS: O2SAT 94
[2021-06-06] MEDS: DOCUSATE SODIUM 100 MG CAPSULE PO (08:55)
[2021-06-06] MEDS: THYROID 60 MG TABLET 120 MG PO (08:55)
[2021-06-06] MEDS: THYROID 30 MG TABLET PO (08:56)
[2021-06-06] MEDS: ENOXAPARIN 40 MG/0.4 ML SYRINGE SUB-Q (08:56)
--- NOTE | 2021-06-06 13:18 | PM.PNGS ---
Progress Note: A&P Assessment and Plan (1) Acute cholecystitis: Onset Date: ~06/01/21 Code(s): K81.0 - Acute cholecystitis Status: Acute Assessment and Plan: Doing well surgically. Just waiting on SNF placement and will need COVID test before discharging. (2) Umbilical hernia: Onset Date: Unknown Code(s): K42.9 - Umbilical hernia without obstruction or gangrene Status: Acute (3) Left breast mass: Onset Date: Unknown Code(s): N63.20 - Unspecified lump in the left breast, unspecified quadrant Status: Acute Assessment and Plan: Further workup as outpatient. Subjective Subjective Date/Time Seen: 06/06/21 13:18 Interval history: Pain improving. Tolerating diet. Exam GI: Inspection: incision (C/D/I) GI Palp: Yes Soft to palpation and Yes Tenderness to palpation present (GI) (appropriate postop) Auscultation: normal bowel sounds Objective Data Vital Signs Vital Signs: Vital Signs - 24 hr 06/05/21 14:00 06/05/21 20:00 06/05/21 22:00 Temperature 36.1 C L 37.8 C H Pulse Rate 99 97 97 Respiratory Rate 18 20 20 Blood Pressure 135/52 L 138/77 Pulse Oximetry 95 94 94 06/05/21 23:11 06/06/21 06:00 06/06/21 08:00 Temperature 37.7 C H 36.3 C L Pulse Rate 85 Respiratory Rate 20 Blood Pressure 141/66 H Pulse Oximetry 94 94 Intake/Output Intake/Output: Intake & Output 06/03/21 06/04/21 06/05/21 06/06/21 23:59 23:59 23:59 23:59 Intake Total 2790 1330 1480 560 Output Total 590 560 Balance 2790 740 920 560 Meds/Results Medications: Active Medications Generic Name Dose Route Start Last Admin Trade Name Freq PRN Reason Stop Dose Admin Acetaminophen 500 mg 06/03/21 11:26 06/05/21 23:11 Acetaminophen 500 Mg Tablet PO 500 mg Q6H PRN Administration Mild Pain (1-3) or Fever Hydrocodone Bitart/Acetaminophen 1 tab 06/03/21 11:26 06/04/21 13:49 Hydrocodone/Acetaminophen (*Crx) 7.5-325 Mg Tablet PO 1 tab Q6H PRN Administration Pain Rated 7-10 Hydrocodone Bitart/Acetaminophen 1 tab 06/03/21 12:02 06/03/21 21:54 Hydrocodone/Acetaminophen (*Crx) 5-325 Mg Tablet PO 1 tab Q4H PRN Administration Moderate Pain (4-6) Al Hydrox/Mg Hydrox/Simethicone 30 ml 06/01/21 14:15 Mag Hydrox/Al Hydrox/Simeth 30 Ml Udc PO QID PRN Dyspepsia Bisacodyl 5 mg 06/01/21 14:15 06/04/21 04:28 Bisacodyl 5 Mg Tablet Ec PO 5 mg DAILY PRN Administration Constipation Diphenhydramine HCl 25 mg 06/03/21 11:26 Diphenhydramine Hcl Inj 50 Mg/Ml Vial IV PUSH Q6H PRN Itching Docusate Sodium 100 mg 06/01/21 17:00 06/06/21 08:55 Docusate Sodium 100 Mg Capsule PO 100 mg BID VANESSA Administration Enoxaparin Sodium 40 mg 06/02/21 09:00 06/06/21 08:56 Enoxaparin 40 Mg/0.4 Ml Syringe SUB-Q 40 mg DAILY VANESSA Administration Hydralazine HCl 10 mg 06/01/21 16:12 Hydralazine Hcl 20 Mg/Ml Vial IV PUSH Q8H PRN SBP >180 Naloxone HCl 0.1 mg 06/01/21 14:15 Naloxone Hcl 0.4 Mg/Ml Vial IV PUSH Q2M PRN Opiate Reversal Ondansetron HCl 4 mg 06/01/21 14:15 06/01/21 20:56 Ondansetron Inj 4 Mg/2 Ml Vial IV PUSH 4 mg Q6H PRN Administration Nausea And Vomiting Polyethylene Glycol 17 gm 06/02/21 09:00 06/06/21 08:54 Polyethylene Glycol 3350 17 Gm Powd.Pack PO Not Given QAM VANESSA Thyroid 120 mg 06/02/21 09:00 06/06/21 08:55 Thyroid 60 Mg Tablet PO 120 mg QAM VANESSA Administration Thyroid 30 mg 06/02/21 09:00 06/06/21 08:56 Thyroid 30 Mg Tablet PO 30 mg QAM VANESSA Administration Radiology Results: ITS Impressions Abdomen/Pelvis CT 06/01/21 11:26 IMPRESSION: Distended gallbladder, mild pericholecystic fat stranding. Acute cholecystitis is not excluded. Consider gallbladder ultrasound examination Large ventral abdominal wall hernia containing small bowel, without evidence of strangulation or obstru
--- NOTE | 2021-06-06 13:56 | PM.IMPN ---
Progress Note: A&P Assessment and Plan (1) Acute cholecystitis: Onset Date: ~06/01/21 Code(s): K81.0 - Acute cholecystitis Status: Acute Assessment and Plan: Presented with right upper quadrant pain. CT showed distended gallbladder with mild pericholecystic fat stranding concerning for acute cholecystitis with cholelithiasis and gallbladder sludge noted on right upper quadrant ultrasound. S/p laparoscopic cholecystectomy performed 06/03/[address] Whalen. General surgery managing. (2) Umbilical hernia: Onset Date: Unknown Code(s): K42.9 - Umbilical hernia without obstruction or gangrene Status: Acute Assessment and Plan: S/p open repair of large umbilical hernia with sutures on 06/03/[address] Whalen. Management per general surgery. Continue abdominal binder (3) Borderline type 2 diabetes mellitus: Onset Date: Unknown Code(s): R73.03 - Prediabetes Status: Acute Assessment and Plan: She has reportedly been diagnosed with this. Her A1c is 5.6, which would not be consistent with prediabetes, however I am unsure what her last A1c was. She is not on any diabetes medications and reportedly is managing with diet and exercise no need for glucose monitoring during hospitalization. (4) Elevated blood pressure reading: Code(s): R03.0 - Elevated blood-pressure reading, without diagnosis of hypertension Status: Acute Assessment and Plan: Blood pressure reviewed and initially elevated, likely due to pain, but has improved. Last BP 141/66 PRN hydralazine for systolic BP >180 Monitor BP trends (5) Chronic kidney disease: Onset Date: ~2017 Code(s): N18.9 - Chronic kidney disease, unspecified Status: Acute Assessment and Plan: Creatinine has been consistent around 1.2. Appears stable on review of prior labs. 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 TSH is 9.7 with normal T3 and T4. Continue armour thyroid at increased dose of 150 mg. She will need to repeat a reflex TSH in several weeks as an outpatient for further monitoring (7) Left breast mass: Onset Date: Unknown Code(s): N63.20 - Unspecified lump in the left breast, unspecified quadrant Status: Acute Assessment and Plan: 1.3 cm left breast mass noted on CT. she has never had a mammogram done before. Will need to arrange outpatient diagnostic mammogram upon discharge (8) Transaminitis: Onset Date: ~05/2021 Code(s): R74.01 - Elevation of levels of liver transaminase levels Status: Acute Assessment and Plan: AST and ALT with sharp increase on 06/03/21 (preoperatively). May be related to acute cholecystitis. Additionally, she does have diffuse hepatic steatosis noted on CT. Total bili wnl. Trend LFTs Plan for follow up labs in 1 week to monitor for improvement/resolution (9) Generalized weakness: Code(s): R53.1 - Weakness Status: Acute Assessment and Plan: She felt too weak to go home and care for herself. PT/OT has been ordered Care coordination following for SNF placement. Awaiting insurance authorization and accepting facility. (10) Hypoxia: Code(s): R09.02 - Hypoxemia Status: Acute Assessment and Plan: Unable to be weaned off O2 following surgery. Currently maintaining adequate O2 sats on 1 L. continue supplemental O2 as needed with goal saturation 92% or above. wean to goal CXR with atelectasis. Encouraged incentive spirometry use O2 sats will need to be monitored at outside facility with supplemental oxygen prn. Instructions have been provided for facility to complete home O2 eval prior to discharge home Subjectiv
[2021-06-06 14:00] VITALS: BP 147/57; PULSE 94; RESP 20; TEMP 37.1; O2SAT 95
[2021-06-06] MEDS: HYDROcodone/acetaminophen (*CRX) 7.5-325 MG TABLET 1 TAB PO (15:59)
[2021-06-06 20:15] VITALS: O2SAT 93
[2021-06-06 20:25] VITALS: PULSE 93; RESP 18; O2SAT 95
[2021-06-06 22:00] VITALS: BP 149/71; PULSE 93; RESP 18; TEMP 36.3; O2SAT 95
[2021-06-07 06:00] VITALS: BP 141/59; PULSE 90; RESP 16; TEMP 36.4; O2SAT 98
[2021-06-07 08:00] VITALS: O2SAT 98
[2021-06-07] MEDS: THYROID 60 MG TABLET 120 MG PO (08:45)
[2021-06-07] MEDS: ENOXAPARIN 40 MG/0.4 ML SYRINGE SUB-Q (08:45)
[2021-06-07] MEDS: DOCUSATE SODIUM 100 MG CAPSULE PO ×2 (08:45→16:52)
[2021-06-07] MEDS: THYROID 30 MG TABLET PO (08:45)
[2021-06-07 11:00] VITALS: O2SAT 95
--- NOTE | 2021-06-07 13:42 | PM.IMPN ---
Progress Note: A&P Assessment and Plan (1) Acute cholecystitis: Onset Date: ~06/01/21 Code(s): K81.0 - Acute cholecystitis Status: Acute Assessment and Plan: Presented with right upper quadrant pain. CT showed distended gallbladder with mild pericholecystic fat stranding concerning for acute cholecystitis with cholelithiasis and gallbladder sludge noted on right upper quadrant ultrasound. S/p laparoscopic cholecystectomy performed 06/03/[address] Whalen. Managed by general surgery. (2) Umbilical hernia: Onset Date: Unknown Code(s): K42.9 - Umbilical hernia without obstruction or gangrene Status: Acute Assessment and Plan: S/p open repair of large umbilical hernia with sutures on 06/03/[address] Whalen. Management per general surgery. Continue abdominal binder (3) Borderline type 2 diabetes mellitus: Onset Date: Unknown Code(s): R73.03 - Prediabetes Status: Acute Assessment and Plan: She has reportedly been diagnosed with this. Her A1c is 5.6, which would not be consistent with prediabetes, however I am unsure what her last A1c was. She is not on any diabetes medications and reportedly is managing with diet and exercise no need for glucose monitoring during hospitalization. (4) Elevated blood pressure reading: Code(s): R03.0 - Elevated blood-pressure reading, without diagnosis of hypertension Status: Acute Assessment and Plan: Blood pressure reviewed and initially elevated, likely due to pain, but has improved and remained stable (5) Chronic kidney disease: Onset Date: ~2017 Code(s): N18.9 - Chronic kidney disease, unspecified Status: Acute Assessment and Plan: Creatinine has been consistent around 1.2. Appears stable on review of old labs. 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 TSH is 9.7 with normal T3 and T4. Armor thyroid was increased to 150 mg and will be continued She will need to repeat a reflex TSH in several weeks as an outpatient for further monitoring (7) Left breast mass: Onset Date: Unknown Code(s): N63.20 - Unspecified lump in the left breast, unspecified quadrant Status: Acute Assessment and Plan: 1.3 cm left breast mass noted on CT. she has never had a mammogram done before. Will need to arrange outpatient diagnostic mammogram upon discharge. follow-up with PCP (8) Transaminitis: Onset Date: ~05/2021 Code(s): R74.01 - Elevation of levels of liver transaminase levels Status: Acute Assessment and Plan: AST and ALT with sharp increase on 06/03/21 (preoperatively). May be related to acute cholecystitis. Additionally, she does have diffuse hepatic steatosis noted on CT. Total bili wnl. Plan for follow up labs in 1 week to monitor for improvement/resolution (9) Generalized weakness: Code(s): R53.1 - Weakness Status: Acute Assessment and Plan: She felt too weak to go home and care for herself. PT/OT has been ordered planning for discharge to SNF today. (10) Hypoxia: Code(s): R09.02 - Hypoxemia Status: Acute Assessment and Plan: Unable to be weaned off O2 following surgery. Currently maintaining adequate O2 sats on 1 L. continue supplemental O2 as needed with goal saturation 92% or above. wean to goal CXR with atelectasis. Continue incentive spirometry use O2 sats will need to be monitored at outside facility with supplemental oxygen prn. Instructions have been provided for facility to complete home O2 eval prior to discharge home Subjective Date/time seen: 06/07/21 13:42 Interval history: Date of service: 06/06/2021 Yara Aguirre is a 75-year-old female wit
[2021-06-07 14:00] VITALS: BP 145/59; PULSE 95; RESP 20; TEMP 36.3; O2SAT 95
[2021-06-07 16:19] LABS: EDCOVIDSCREEN Negative (Negative)
--- NOTE | 2021-06-14 12:52 | PM.DS ---
DS: Admitting Diagnosis Admitting Diagnosis Admitting Diagnosis: Acute calculous cholecystitis Umbilical hernia without obstruction Left breast mass Chronic kidney disease PVD Morbid obesity BMI 42 Post-surgical hypothyroidism Elevated blood pressure reading (initially thought this may be hypertension, but no history and resolved with pain management) Transaminitis Borderline diabetes DS: Discharge Diagnosis Discharge Diagnosis (1) Acute cholecystitis: Onset Date: ~06/01/21 Code(s): K81.0 - Acute cholecystitis Status: Acute Assessment and Plan: Presented to the ER on 06/01/21 with findings consistent with acute calculous cholecystitis. Decision was made to proceed with laparoscopic cholecystectomy on 06/03/21 when she was originally planned for an umbilical hernia repair. (see operative note) Pathology showed gangrenous acute cholecystitis with cholelithiasis, which was discussed in detail with the patient. (2) Umbilical hernia: Onset Date: Unknown Code(s): K42.9 - Umbilical hernia without obstruction or gangrene Status: Acute Assessment and Plan: Large incarcerated umbilical hernia containing omentum and small bowel without an obstruction. She was seen by our service previously in the inpatient setting for her hernia and was scheduled as an outpatient for laparoscopic repair of this hernia with mesh on 06/03/21. She presented to the ER on 06/01/21 with acute cholecystitis as above. Therefore, the decision was made by Dr. Whalen to instead repair the umbilical hernia at the time of the laparoscopic cholecystectomy, but instead he repaired this in an open fashion with sutures and no mesh. (See operative note). Will continue with abdominal binder and follow-up as instructed in our office with Dr. Whalen. (3) Left breast mass: Onset Date: Unknown Code(s): N63.20 - Unspecified lump in the left breast, unspecified quadrant Status: Acute Assessment and Plan: Small 1.3 cm left breast mass noted on CT scan incidentally. She has never had a mammogram in the past and does not routinely follow a [employer]. Recommended a bilateral diagnostic mammogram outpatient for further workup, which could be ordered by her PCP or potentially through our service when seen in follow-up for surgery. (4) Chronic kidney disease: Onset Date: ~2017 Code(s): N18.9 - Chronic kidney disease, unspecified Status: Acute Assessment and Plan: Creatinine remained around 1.2 and stable during hospitalization. F/u with PCP. (5) PVD (peripheral vascular disease): Code(s): I73.9 - Peripheral vascular disease, unspecified Status: Acute Assessment and Plan: Stable. (6) Morbid obesity with BMI of 40.0-44.9, adult: Onset Date: Unknown Code(s): E66.01 - Morbid (severe) obesity due to excess calories; Z68.41 - Body mass index [BMI]40.0-44.9, adult Status: Acute Assessment and Plan: Encouraged weight loss and healthy lifestyle changes. Discussed risk of hernia recurrence with obesity. F/u with PCP for other weight loss options. (7) Post-surgical hypothyroidism: Onset Date: Unknown Code(s): E89.0 - Postprocedural hypothyroidism Status: Acute Assessment and Plan: She had thyroidectomy in 2007 due to goiter. TSH is 9.7 with normal T3 and T4. Armor thyroid was increased to 150 mg and will be continued She will need to repeat a reflex TSH in several weeks as an outpatient for further monitoring. F/u with PCP. (8) Hypoxia: Code(s): R09.02 - Hypoxemia Status: Acute Assessment and Plan: Unable to be weaned off O2 following surgery. Currently maintaining adequate O2 sats on 1 L. Continue supplemental O2 as needed with goal saturation 92% or above. wean to goal O2 sats will need to be monitored at outside facility with supplemental oxygen prn. Instructions have been provided for facility to complete home O2 eval
== END 2021-06-07 17:55 | DRG 418 ==
LOC: ANHED 14:24 → ANH3MEDSUR 06-02 07:12
PROVIDERS: Physician Assistant; Surgery; Admitting Provider Surgery; Emergency Provider Nurse Practitioner; PCP Family Medicine; Visit Provider Surgery
PROC: 0FT44ZZ Resection of Gallbladder, Percutaneous Endoscopic Approach (ICD-10-PCS; CPT 47562; principal; 2021-06-03 07:30)
PROC: 0FT44ZZ Resection of Gallbladder, Percutaneous Endoscopic Approach (ICD-10-PCS; 2021-06-03 07:30)
DX: K80.00 Calculus of gallbladder with acute cholecystitis without obstruction (principal); K42.0 Umbilical hernia with obstruction, without gangrene; D64.9 Anemia, unspecified; I12.9 Hypertensive chronic kidney disease with stage 1 through stage 4 chronic kidney disease, or unspecified chronic kidney disease; N18.9 Chronic kidney disease, unspecified; E89.0 Postprocedural hypothyroidism; R09.02 Hypoxemia
CPT/HCPCS: 36415; 71046; 74019; 74177; 76705; 80048; 80053; 80076; 81003; 82948; 83036; 83605; 83690; 83735; 84439; 84443; 84480; 84484; 85025; 85027; 85049; 85055; 86850; 86900; 86901; 87070; 87075; 87205; 87426; 88302; 88304; 93005; 96361; 96374; 96375; 96376; 97110; 97116; 97161; 97165; 97530; 97535; 99285; A9270; C9803; G0378; J0131; J0330; J0692; J1100; J1170; J1650; J2250; J2405; J2704; J2710; J3010; J7030; J7120; Q9967

== ENCOUNTER 2022-05-28 13:20 | Emergency (ER) | payer MEDICARE, SELFPAY ==
[2022-05-28 13:36] VITALS: BP 142/81; PULSE 86; RESP 20; TEMP 36.9; O2SAT 97
[2022-05-28 14:19] LABS: Glucose Point of Care 173 mg/dl (65-105)
--- NOTE | 2022-05-28 15:18 | ED.WOUNDLAC ---
HPI - Wound/Laceration General Chief Complaint: Wound/Laceration Stated Complaint: Cut Finger Lt Hand History of Present Illness HPI narrative: Patient is a 76-year-old female who presents to the [facility] via [facility] for an evaluation of left index finger laceration that occurred 1 hr [employer]. She was attempting to cut a hole in a tennis ball with a knife when the knife slipped causing laceration. She reports pain and bleeding. Bleeding controlled with applied pressure. Remaining still resolves pain. She reports running laceration under tap water after incident. Related Data Home Medications Medication Instructions Recorded Confirmed thyroid (pork) 120 mg tablet 120 mg PO DAILY 05/29/21 05/28/22 ([place] [facility]) Allergies Allergy/AdvReac Type Severity Reaction Status Date / Time codeine Allergy Mild Unknown Verified 05/28/22 13:43 levothyroxine sodium Allergy Mild neck Verified 05/28/22 13:43 swelling Penicillins Allergy Mild Unknown Verified 05/28/22 13:43 Review of Systems Review of Systems: Pertinent negatives fever, chills, sweats, malaise, poor p.o. intake, change in appetite, headache, LOC, heavy bleeding, dizziness, streaking, drainage, numbness, tingling, loss of sensation, foreign body sensation, deformity, sob, chest pain, and heart palpitations/murmurs. [facility] Past Medical History Medical History Anemia 2019 Borderline type 2 diabetes mellitus (Unknown) Hiatal hernia Diagnosed in 2018 Hypothyroidism PVD (peripheral vascular disease) Spontaneous rupture of umbilical cord Umbilical hernia (Unknown) Surgical History Surgical History H/O thyroidectomy 2007 History of abdominal surgery Gallbladder surgery May 2021 History of hernia surgery May 2021 by Ho Whalen History of total left knee replacement 2010 History of total right knee replacement 2009 Family History Family History Father Family history of premature coronary heart disease Family history of heart disease in male family member before age 55 Mother Family history of osteoporosis Family history of malignant neoplasm Family history of congestive heart failure History of hysterectomy Grandparent Liver cancer Sibling ALS (amyotrophic lateral sclerosis) Other Cerebrovascular accident Heart disease History of arthritis History of cancer Social History Social History Social History: Ms. Aguirre lives at home alone. She is independent in her daily activities and up until about 2 weeks ago, she was working in home health care. Her PCP is Dr. New. She is not able to provide me with the name of a surrogate decision maker, stating she would like to speak to the other constitution party first. She would like to be a full code. Second hand tobacco smoke exposure: No Alcohol intake: never Substance use: never Substance use type: does not use Gender identity (if verbalized by the patient): Female Sexual Orientation (if Verbalized by the Patient): Straight or Heterosexual Spiritual care concerns: No Agree to blood products: No Comments reviewed Exam Narrative: GENERAL: Well-appearing, well-nourished, and in no acute distress. HEAD: Normocephalic, atraumatic. No facial swelling appreciated. EYES: PERRLA and EOMI. No evidence of erythema, swelling, or drainage. ENT: Nares clear, no rhinorrhea or epistaxis.Mucous membranes moist and pink. Uvula is midline without erythema and swelling. No evidence of obstruction, petechial rash, cobblestoning, lesions, ulcers, erythema, swelling, exudates, peritonsillar abscess, tenting, or drooling. Breath odor and voice normal. NECK: Supple. No Lymphadenopathy or nuchal rigidity appreciated. CHEST: Bilateral lung minor are clear to auscultatio
== END 2022-05-28 15:20 | disposition home or self-care (01) ==
PROVIDERS: Emergency Provider Nurse Practitioner Family; PCP Family Medicine
DX: S61.211A Laceration without foreign body of left index finger without damage to nail, initial encounter (principal); W26.0XXA Contact with knife, initial encounter; I73.9 Peripheral vascular disease, unspecified; E89.0 Postprocedural hypothyroidism; Z96.653 Presence of artificial knee joint, bilateral; R73.03 Prediabetes
CPT/HCPCS: 12001; 82948; 99212; G0463

== ENCOUNTER → 2023-02-15 13:12 | Outpatient (CLI) | payer MEDICARE, OTHER, SELFPAY ==
--- NOTE | ~2023-02-15 | MR_ITS ---
MRI of the lumbar spine Clinical History: Radiculopathy Technique: Axial T2-weighted images, and sagittal T1-weighted, T2-weighted, and T2 fat-sat images wer e acquired. Findings: There is no fracture or subluxation of the lumbar spine. Vertebral bodies maintain normal h eight and alignment. No bone marrow signal abnormality seen. At L1-L2 and L2-L3, there are mild facet joint degenerative changes. No disc bulge or herniation T le vels. No spinal canal stenosis or neural foraminal narrowing at these levels. At L3-L4, there is minimal disc bulge with facet arthropathy. No shashank spinal canal stenosis. Neural foramina are preserved. At L4-L5, there is facet arthropathy without disc bulge or herniation. No spinal canal stenosis or ne ural foraminal narrowing. At L5-S1, there is minimal disc bulge with facet arthropathy. No spinal canal stenosis or neural fora jovan narrowing. Paravertebral soft tissues are unremarkable. Impression: Minimal degenerative changes, as above. Reviewed, dictated and finalized at location . Impression: Minimal degenerative changes, as above.
== END ==
PROVIDERS: PCP Family Medicine; Visit Provider Orthopaedic Surgery
DX: M48.061 Spinal stenosis, lumbar region without neurogenic claudication (principal)
CPT/HCPCS: 72148

== ENCOUNTER → 2023-05-19 13:45 | Outpatient (CLI) | payer MEDICARE, OTHER, SELFPAY ==
--- NOTE | ~2023-05-19 | CT_ITS ---
EXAMINATION: CT knee RT wo con DATE: 05/19/2023 14:04 INDICATION: Right total knee arthroplasty with chronic progressively worsening right knee pain post f all 3 years prior. Clicking in the right knee. TECHNIQUE: High resolution computed tomography (CT) of the right knee was performed without intraveno us contrast. Additional sagittal and coronal reconstructions were performed. Automated exposure contr ol and iterative reconstruction technique were employed. The dose-length product was 231.50 mGy-cm. COMPARISON: Radiographs dated 07/26/2021 FINDINGS: There is metallic streak artifact associated with a cemented right total knee arthroplasty with guerra lar resurfacing which appears well seated in near-anatomic alignment. No periapical cystic lucency to suggest loosening or infection. No fracture. Soft tissues are unremarkable. No knee joint effusion. IMPRESSION: 1. Expected appearance of a right total knee arthroplasty with patellar resurfacing. No knee joint ef fusion, loosening or acute osseous abnormality. Reviewed, dictated and finalized at location A. IMPRESSION: 1. Expected appearance of a right total knee arthroplasty with patellar resurfa cing. No knee joint effusion, loosening or acute osseous abnormality.
== END ==
PROVIDERS: PCP Orthopaedic Surgery; Visit Provider Orthopaedic Surgery
DX: Z96.653 Presence of artificial knee joint, bilateral (principal)
CPT/HCPCS: 73700

== ENCOUNTER 2024-02-19 12:52 | Emergency (ER) | payer MEDICARE, OTHER, SELFPAY ==
[2024-02-19 13:08] VITALS: BP 137/67; PULSE 80; RESP 18; TEMP 36.4; O2SAT 95
[2024-02-19 13:12] VITALS: BP 137/67; PULSE 80; RESP 18; O2SAT 95
--- NOTE | 2024-02-19 13:16 | ED.GENADULT ---
HPI - General Adult General Chief complaint: Unspecified Stated complaint: fatigue Time Seen by Provider: 02/19/24 13:17 Source: patient Mode of arrival: ambulatory Limitations: no limitations History of Present Illness HPI narrative: 78 yo F presents with c/o fatigue. Has been very fatigue for the past 6 months and getting worse. States i just need my thyroid medication. has been off medicine for over a year. Her new medicare plan stopped cover her prescriptions. has not seen her PCP in over a year. Called for appt and Dr. New out of office this week. Told her they could get her end of week with someone else in the office but pt states needs her medicine today. Called the pharmacy for refill and they told her to come to Urgent care. All systems reviewed and negative except as noted above. Related Data Home Medications Medication Instructions Recorded Confirmed No Home Medications 02/19/24 02/19/24 Allergies Allergy/AdvReac Type Severity Reaction Status Date / Time codeine Allergy Mild Unknown Verified 02/19/24 13:11 levothyroxine sodium Allergy Mild neck Verified 02/19/24 13:11 swelling Penicillins Allergy Mild Unknown Verified 02/19/24 13:11 Review of Systems Review of Systems: CONSTITUTIONAL: Denies fever, chills, or sweats. Reports fatigue. EYES: Denies visual changes, redness, or discharge. ENT: Denies rhinorrhea, congestion, sore throat, or otalgia. CARDIOVASCULAR: Denies chest pain, palpitations, or edema. RESPIRATORY: Denies cough or dyspnea. GASTROINTESTINAL: Denies abdominal pain, nausea, vomiting, or diarrhea. GENITOURINARY: Denies dysuria or hematuria. SKIN: Denies rash or itching. MUSCULOSKELETAL: Denies back pain, joint pain, or myalgia. NEUROLOGIC: Denies headache, numbness, or weakness. PSYCHIATRIC: Denies anxiety or depression. All other systems reviewed are negative, except as documented in HPI. [facility] Past Medical History Medical History Anemia 2019 Borderline type 2 diabetes mellitus (Unknown) Hiatal hernia Diagnosed in 2019 Hypothyroidism PVD (peripheral vascular disease) Spontaneous rupture of umbilical cord Umbilical hernia (Unknown) Surgical History Surgical History H/O thyroidectomy 2008 History of abdominal surgery Gallbladder surgery May 2021 History of hernia surgery May 2021 by Ho Whalen History of total left knee replacement 2010 History of total right knee replacement 2009 Family History Family History Father Family history of premature coronary heart disease Family history of heart disease in male family member before age 55 Mother Family history of osteoporosis Family history of malignant neoplasm Family history of congestive heart failure History of hysterectomy Grandparent Liver cancer Sibling ALS (amyotrophic lateral sclerosis) Other Cerebrovascular accident Heart disease History of arthritis History of cancer Social History Social History (Updated 01/11/23 @ 11:[address] [facility]) Social History: Ms. Aguirre lives at home alone. She is independent in her daily activities and up until about 2 weeks ago, she was working in home health care. Her PCP is Dr. New. She is not able to provide me with the name of a surrogate decision maker, stating she would like to speak to the other democrat first. She would like to be a full code. Smoking status: Never smoker Second hand tobacco smoke exposure: No Alcohol intake: never Substance use: never Substance use type: does not use Lack of Transportation: No Lack of Food: Never True Current Housing: Decline to Answer Concerned About Future Housing: Decline to Answer Difficulty Paying Gas/Electric Bills: No Difficulty Paying for Meds: No Currently Unemployed: YES Educatio
== END 2024-02-19 13:38 | disposition home or self-care (01) ==
PROVIDERS: Emergency Provider Nurse Practitioner Family; PCP Family Medicine
DX: R53.83 Other fatigue (principal); E03.9 Hypothyroidism, unspecified; E11.9 Type 2 diabetes mellitus without complications; I73.9 Peripheral vascular disease, unspecified; Z96.653 Presence of artificial knee joint, bilateral
CPT/HCPCS: 99211; G0463